=== PATIENT | male | born 1965 | race African-American/Black ===

== ENCOUNTER 2017-07-22 12:09 | Inpatient (IN) | payer OTHER ==
[2017-07-22 13:51] VITALS: BMI 26.8
--- NOTE | 2017-07-22 16:48 | HP ---
CIWA Score - CIWA Score Nausea/Vomitin-Mild Nausea/No Vomiting Muscle Tremors: 3 Anxiety: 4-Mod. Anxious/Guarded Agitation: 4-Moderately Restless Paroxysmal Sweats: 1-Minimal Palms Moist Orientation: 0-Oriented Tacttile Disturbances: 0-None Auditory Disturbances: 0-None Visual Disturbances: 0-None Headache: 0-None Present CIWA-Ar Total Score: 13 Admission ROS [facility] - HPI Chief Complaint: withdrawal sx Allergies/Adverse Reactions: Allergies Allergy/AdvReac Type Severity Reaction Status Date / Time No Known Allergies Allergy Verified 07/22/17 16:39 History of Present Illness: 52 years old male with long history of alcohol nicotine dependence denies medical issue denies mental illness is admitted to detox Exam Limitations: No Limitations - Ebola screening Have you traveled outside of the country in the last 21 days: No Have you had contact with anyone from an Ebola affected area: No Have you been sick,other than usual withdrawal symptoms: No Do you have a fever: No - Review of Systems Constitutional: Changes in sleep, Weight Stable EENT: reports: No Symptoms Reported Respiratory: reports: No Symptoms reported Cardiac: reports: No Symptoms Reported GI: reports: Nausea, Poor Fluid Intake, Abdominal cramping : reports: No Symptoms Reported Musculoskeletal: reports: No Symptoms Reported Integumentary: reports: No Symptoms Reported Neuro: reports: Tremors Endocrine: reports: No Symptoms Reported Hematology: reports: No Symptoms Reported Psychiatric: reports: No Sypmtoms Reported, Judgement Intact, Mood/Affect Appropiate, Orientated x3 Other Systems: Reviewed and Negative Patient History - Patient Medical History Hx Anemia: No Hx Asthma: No Hx Chronic Obstructive Pulmonary Disease (COPD): No Hx Cancer: No Hx Cardiac Disorders: No Hx Congestive Heart Failure: No Hx Hypertension: No Hx Hypercholesterolemia: No Hx Pacemaker: No HX Cerebrovascular Accident: No Hx Seizures: No Hx Dementia: No Hx Diabetes: No Hx Gastrointestinal Disorders: No Hx Liver Disease: No Hx Genitourinary Disorders: No Hx Sexually Transmitted Disorders: No Hx Renal Disease (ESRD): No Hx Thyroid Disease: No Hx Human Immunodeficiency Virus (HIV): No Hx Hepatitis C: No Hx Depression: No Hx Suicide Attempt: No Hx Bipolar Disorder: No Hx Schizophrenia: No - Patient Surgical History Past Surgical History: Yes Hx Orthopedic Surgery: Yes (left jaw elbow 2006) Anesthesia Reaction: No - PPD History Previous Implant?: Yes Documented Results: Negative w/o proof Implanted On Prior [facility] Admission?: No PPD to be Administered?: Yes - Smoking Cessation Smoking history: Current every day smoker Have you smoked in the past 12 months: Yes Aproximately how many cigarettes per day: 2 Cigars Per Day: 0 Hx Chewing Tobacco Use: No Initiated information on smoking cessation: Yes 'Breaking Loose' booklet given: 07/22/17 - Substance & Tx. History Hx Alcohol Use: Yes Hx Substance Use: Yes Substance Use Type: Alcohol, Marijuana Hx Substance Use Treatment: No Family Disease History - Family Disease History Family Disease History: Diabetes: Mother Admission Physical Exam [facility] - Vital Signs Vital Signs: Vital Signs - 24 hr 07/22/17 13:49 Temperature 97.7 F Pulse Rate 65 Respiratory 20 Rate Blood Pressure 135/74 - Physical General Appearance: Yes: Appropriately Dressed, Mild Distress, Tremorous, Irritable, Sweating, Anxious HEENTM: Yes: Hearing grossly Normal, Normal ENT Inspection, Normocephalic, Normal Voice Respiratory: Yes: Chest Non-Tender, Lungs Clear, Normal Breath Sounds, No Respiratory Distress, No Accessory Muscle Use Neck: Yes: Supple, Trachea in good position Breast: Yes: Breasts Symetrical Cardiology: Yes: Regular Rhythm, S1, S2, Bradycardia Abdominal: Yes: Normal Bowel Sounds, Non Tender, Soft Genitourinary: Yes: Within Normal Limits Back: Yes: Normal Inspection Musculoskeletal: Yes: full range of Motion, Gait Steady Extremities: Yes: Normal Inspection, Normal Range of Motion, Non-Tender, Tremors Neurological: Yes: Fully Oriented, Alert, Motor Strength 5/5, Normal Mood/Affect , Normal Response Integumentary: Yes: Warm Lymphatic: Yes: Within Normal Limits - Diagnostic (1) Alcohol dependence with uncomplicated withdrawal Current Visit: Yes Status: Acute (2) Nicotine dependence Current Visit: Yes Status: Acute Qualifiers: Nicotine product type: cigarettes Substance use status: in withdrawal Qualified Code(s): F17.213 - Nicotine dependence, cigarettes, with withdrawal Cleared for Admission [facility] - Detox or Rehab [facility] Level of Care: Medically Managed Detox Regimen/Protocol: Librium [facility] Breath Alcohol Content Breath Alcohol Content: 0 Urine Drug Screen - Results Drug Screen Negative: No Urine Drug Screen Results: THC-Marijuana
[2017-07-22] MEDS ORDERED: MAGNESIUM CITRATE 300 ML BOTTLE PO PRN (16:49)
[2017-07-22] MEDS ORDERED: NICOTINE POLACRILEX 2 MG GUM BC PRN (16:49)
[2017-07-22] MEDS ORDERED: MAGNESIUM HYDROX 2400MG/30ML ORAL SUSPENSION 30 ML CUP PO PRN (16:49)
[2017-07-22] MEDS ORDERED: chlordiazePOXIDE HCL 25 MG CAPSULE PO PRN (16:49)
[2017-07-22] MEDS ORDERED: diphenhydrAMINE HCL 50 MG CAPSULE PO PRN (16:49)
[2017-07-22] MEDS ORDERED: MENTHOL/PHENOL 1 EACH UD MM PRN (16:49)
[2017-07-22] MEDS ORDERED: ACETAMINOPHEN 325 MG TABLET (FP) PO PRN (16:49)
[2017-07-22] MEDS ORDERED: P-EPHED 60MG/TRIPROLIDI 2.5MG TABLET PO PRN (16:49)
[2017-07-22] MEDS ORDERED: guaiFENesin/D-METHORPHAN HB 10 ML UNIT-DOSE CUPS PO PRN (16:49)
[2017-07-22] MEDS ORDERED: LOPERAMIDE HCL 2 MG CAPSULE PO PRN (16:49)
[2017-07-22] MEDS ORDERED: MAG HYDROX/AL HYDROX/SIMETH 30 ML UNIT-DOSE CUP PO PRN (16:49)
[2017-07-22] MEDS ORDERED: hydrOXYzine PAMOATE 50 MG CAPSULE (FP) PO PRN (16:49)
[2017-07-22] MEDS ORDERED: IBUPROFEN 400 MG TABLET (FP) PO PRN (16:49)
[2017-07-22 21:20] LABS: URINE APPEARANCE CLEAR; URINE BILIRUBIN NEGATIVE (NEGATIVE); URINE BLOOD NEGATIVE (NEGATIVE); URINE COLOR YELLOW; URINE GLUCOSE (UA) NEGATIVE (NEGATIVE); URINE KETONE NEGATIVE (NEGATIVE); URINE LEUK ESTERASE NEGATIVE (NEGATIVE); URINE NITRITE NEGATIVE (NEGATIVE); URINE PROTEIN NEGATIVE (NEGATIVE); URINE UROBILINOGEN NEGATIVE mg/dL (0.2-1.0)
[2017-07-22] MEDS: THIAMINE HCL 100 MG TABLET (FP) PO SCH (22:10)
[2017-07-22] MEDS: chlordiazePOXIDE HCL 25 MG CAPSULE PO SCH (22:10)
[2017-07-23] MEDS: chlordiazePOXIDE HCL 25 MG CAPSULE PO SCH (06:18)
[2017-07-23] MEDS ORDERED: diazePAM 5 MG TABLET PO PRN (08:28)
[2017-07-23] MEDS ORDERED: diazePAM 5 MG TABLET PO ONE (08:41)
[2017-07-23] MEDS: PRENATAL VITAMINS W/ FOLIC ACID TABLET (FP) PO SCH (10:15)
[2017-07-23 10:17] LABS: MCH 28.9 pg (25.7-33.7); MCHC 32.4 g/dl (32.0-35.9); MEAN CELL VOLUME 89.1 fl (80-96); MEAN PLT VOLUME 7.7 fl (7.5-11.1); PLATELET COUNT 244 K/MM3 (134-434); RDW 14.1 % (11.9-15.9); WHITE BLOOD COUNT 5.9 K/mm3 (4.0-10.0)
[2017-07-23 10:53] LABS: ALBUMIN 3.5 g/dl (3.4-5.0); ALK PHOS 44 U/L (45-117); ANION GAP 5 (8-16); BILIRUBIN,TOTAL 0.3 mg/dL (0.2-1.0); CALCIUM 9.1 mg/dL (8.5-10.1); CO2 27 mmol/L (21-32); CREATININE 0.9 mg/dL (0.7-1.3); GLUCOSE,RANDOM 100 mg/dL (74-106); SGOT/AST 16 U/L (15-37); SGPT/ALT 26 U/L (12-78); TOT PROT 7.3 g/dl (6.4-8.2)
[2017-07-23] MEDS: NICOTINE 14 MG/24 HOURS TOPICAL PATCH TD SCH (11:30)
[2017-07-23] MEDS: diazePAM 5 MG TABLET PO SCH ×2 (11:32→22:27)
--- NOTE | 2017-07-23 12:53 | PN ---
[facility] CIWA - CIWA Score Nausea/Vomitin-No Nausea/No Vomiting Muscle Tremors: 4-Moderate,w/Arms Extend Anxiety: 4-Mod. Anxious/Guarded Agitation: 4-Moderately Restless Paroxysmal Sweats: 1-Minimal Palms Moist Orientation: 0-Oriented Tacttile Disturbances: 3-Moderate Itch/Numb/Burn Auditory Disturbances: 0-None Visual Disturbances: 0-None Headache: 0-None Present CIWA-Ar Total Score: 16 S Progress Note (SOAP) Subjective: ANXIETY, SWEATS, FATIGUE. C/O "LIBRIUM TOO STRONG FOR ME". ALSO C/O 'DIARRHEA/ STOMACH UPSET". Objective: 07/23/17 12:53 Vital Signs Temperature 96.2 F L 07/23/17 09:44 Pulse Rate 72 07/23/17 09:44 Respiratory Rate 18 07/23/17 09:44 Blood Pressure 152/89 07/23/17 09:44 O2 Sat by Pulse Oximetry (%) Laboratory Last Values WBC 5.9 K/mm3 (4.0-10.0) 07/23/17 07:30 RBC 4.49 M/mm3 (4.00-5.60) 07/23/17 07:30 Hgb 13.0 GM/dL (11.7-16.9) 07/23/17 07:30 Hct 40.0 % (35.4-49) 07/23/17 07:30 MCV 89.1 fl (80-96) 07/23/17 07:30 MCH 28.9 pg (25.7-33.7) 07/23/17 07:30 MCHC 32.4 g/dl (32.0-35.9) 07/23/17 07:30 RDW 14.1 % (11.9-15.9) 07/23/17 07:30 Plt Count 244 K/MM3 (134-434) 07/23/17 07:30 MPV 7.7 fl (7.5-11.1) 07/23/17 07:30 Sodium 139 mmol/L (136-145) 07/23/17 07:30 Potassium 4.3 mmol/L (3.5-5.1) 07/23/17 07:30 Chloride 107 mmol/L (98-107) 07/23/17 07:30 Carbon Dioxide 27 mmol/L (21-32) 07/23/17 07:30 Anion Gap 5 (8-16) L 07/23/17 07:30 BUN 15 mg/dL (7-18) 07/23/17 07:30 Creatinine 0.9 mg/dL (0.7-1.3) 07/23/17 07:30 Creat Clearance w eGFR > 60 (>60) 07/23/17 07:30 Random Glucose 100 mg/dL (74-106) 07/23/17 07:30 Calcium 9.1 mg/dL (8.5-10.1) 07/23/17 07:30 Total Bilirubin 0.3 mg/dL (0.2-1.0) 07/23/17 07:30 AST 16 U/L (15-37) 07/23/17 07:30 ALT 26 U/L (12-78) 07/23/17 07:30 Alkaline Phosphatase 44 U/L (45-117) L 07/23/17 07:30 Total Protein 7.3 g/dl (6.4-8.2) 07/23/17 07:30 Albumin 3.5 g/dl (3.4-5.0) 07/23/17 07:30 Urine Color Yellow 07/22/17 20:50 Urine Appearance Clear 07/22/17 20:50 Urine pH 7.0 (5.0-8.0) 07/22/17 20:50 Ur Specific [place] 1.020 (1.005-1.025) 07/22/17 20:50 Urine Protein Negative (NEGATIVE) 07/22/17 20:50 Urine Glucose (UA) Negative (NEGATIVE) 07/22/17 20:50 Urine Ketones Negative (NEGATIVE) 07/22/17 20:50 Urine Blood Negative (NEGATIVE) 07/22/17 20:50 Urine Nitrite Negative (NEGATIVE) 07/22/17 20:50 Urine Bilirubin Negative (NEGATIVE) 07/22/17 20:50 Urine Urobilinogen Negative mg/dL (0.2-1.0) 07/22/17 20:50 RPR Titer Nonreactive (NONREACTIVE) 07/23/17 07:30 Assessment: 07/23/17 12:53 WITHDRAWAL SX Plan: CONTINUE DETOX D/C LIBRIUM PROTOCOL START VALIUM PROTOCOL
--- NOTE | 2017-07-23 16:01 | EKG ---
Test Reason : Blood Pressure : / mmHG Vent. Rate : 063 BPM Atrial Rate : 063 BPM P-R Int : 182 ms QRS Dur : 086 ms QT Int : 420 ms P-R-T Axes : 057 059 051 degrees QTc Int : 429 ms NORMAL SINUS RHYTHM VOLTAGE CRITERIA FOR LEFT VENTRICULAR HYPERTROPHY ABNORMAL ECG NO PREVIOUS ECGS AVAILABLE Confirmed by CORBY KINCAID MD ([id number]) on 07/23/2017 4:01:06 PM Referred By: Confirmed By:CORBY KINCAID MD
[2017-07-23] MEDS: THIAMINE HCL 100 MG TABLET (FP) PO SCH (22:28)
[2017-07-23] MEDS ORDERED: chlordiazePOXIDE HCL 25 MG CAPSULE PO SCH (23:00)
[2017-07-24] MEDS: NICOTINE 14 MG/24 HOURS TOPICAL PATCH TD SCH (10:20)
[2017-07-24] MEDS: PRENATAL VITAMINS W/ FOLIC ACID TABLET (FP) PO SCH (10:20)
[2017-07-24] MEDS: diazePAM 5 MG TABLET PO SCH ×2 (10:20→22:09)
--- NOTE | 2017-07-24 12:02 | PN ---
S CIWA - CIWA Score Nausea/Vomitin-No Nausea/No Vomiting Muscle Tremors: 3 Anxiety: 5 Agitation: 3 Paroxysmal Sweats: 3 Orientation: 0-Oriented Tacttile Disturbances: 2-Mild Itch/Numbness/Burn Auditory Disturbances: 2-Mild Harshness/Frighten Visual Disturbances: 0-None Headache: 0-None Present CIWA-Ar Total Score: 18 BHS Progress Note (SOAP) Subjective: Tremors, Anxious, Sweating. Objective: PT. A & O X 3, OBSERVED AMBULATING ON UNIT. NO ACUTE DISTRESS. PT. DENIES CHEST PAIN. 07/24/17 12:03 Vital Signs Temperature 97 F L 07/24/17 06:14 Pulse Rate 68 07/24/17 06:14 Respiratory Rate 18 07/24/17 06:14 Blood Pressure 133/95 07/24/17 06:14 O2 Sat by Pulse Oximetry (%) Laboratory Tests 07/22/17 07/23/17 07/23/17 20:50 07:30 07:30 WBC 5.9 RBC 4.49 Hgb 13.0 Hct 40.0 MCV 89.1 MCH 28.9 MCHC 32.4 RDW 14.1 Plt Count 244 MPV 7.7 Sodium 139 Potassium 4.3 Chloride 107 Carbon Dioxide 27 Anion Gap 5 L BUN 15 Creatinine 0.9 Creat Clearance w eGFR > 60 Random Glucose 100 Calcium 9.1 Total Bilirubin 0.3 AST 16 ALT 26 Alkaline Phosphatase 44 L Total Protein 7.3 Albumin 3.5 Urine Color Yellow Urine Appearance Clear Urine pH 7.0 Ur Specific [place] 1.020 Urine Protein Negative Urine Glucose (UA) Negative Urine Ketones Negative Urine Blood Negative Urine Nitrite Negative Urine Bilirubin Negative Urine Urobilinogen Negative RPR Titer 07/23/17 07:30 WBC RBC Hgb Hct MCV MCH MCHC RDW Plt Count MPV Sodium Potassium Chloride Carbon Dioxide Anion Gap BUN Creatinine Creat Clearance w eGFR Random Glucose Calcium Total Bilirubin AST ALT Alkaline Phosphatase Total Protein Albumin Urine Color Urine Appearance Urine pH Ur Specific [place] Urine Protein Urine Glucose (UA) Urine Ketones Urine Blood Urine Nitrite Urine Bilirubin Urine Urobilinogen RPR Titer Nonreactive LABS NOTED. Assessment: 07/24/17 12:03 WITHDRAWAL SYMPTOMS. Plan: CONTINUE DETOX.
[2017-07-24] MEDS: THIAMINE HCL 100 MG TABLET (FP) PO SCH (22:10)
[2017-07-24] MEDS ORDERED: chlordiazePOXIDE 5 MG CAPSULE PO SCH (23:00)
[2017-07-25 06:47] VITALS: BP 140/90; PULSE 71; TEMP 96.2
[2017-07-25] MEDS ORDERED: diazePAM 5 MG TABLET PO SCH (10:00)
--- NOTE | 2017-07-25 17:54 | DS ---
[facility] Detox Discharge Summary Admission Date: 07/22/17 Discharge Date: 07/25/17 - History Present History: Alcohol Dependence Additional Comments: PATIENT ELECTING TO GO HOME. PATIENT ADVISED TO CONSIDER LOCAL 12-STEP / AA / NA OUTPATIENT SUPPORT GROUPS FOR AFTERCARE. PATIENT WAS DISCHARGED FROM DETOX UNIT IN STABLE MEDICAL CONDITION. Pertinent Past History: Nicotine dependence. - Physical Exam Results Vital Signs: Vital Signs Temperature 96.2 F L 07/25/17 06:47 Pulse Rate 71 07/25/17 06:47 Respiratory Rate 18 07/25/17 06:47 Blood Pressure 140/90 07/25/17 06:47 O2 Sat by Pulse Oximetry (%) Pertinent Admission Physical Exam Findings: WITHDRAWAL SYMPTOMS. Laboratory Tests 07/22/17 07/23/17 07/23/17 20:50 07:30 07:30 WBC 5.9 RBC 4.49 Hgb 13.0 Hct 40.0 MCV 89.1 MCH 28.9 MCHC 32.4 RDW 14.1 Plt Count 244 MPV 7.7 Sodium 139 Potassium 4.3 Chloride 107 Carbon Dioxide 27 Anion Gap 5 L BUN 15 Creatinine 0.9 Creat Clearance w eGFR > 60 Random Glucose 100 Calcium 9.1 Total Bilirubin 0.3 AST 16 ALT 26 Alkaline Phosphatase 44 L Total Protein 7.3 Albumin 3.5 Urine Color Yellow Urine Appearance Clear Urine pH 7.0 Ur Specific [place] 1.020 Urine Protein Negative Urine Glucose (UA) Negative Urine Ketones Negative Urine Blood Negative Urine Nitrite Negative Urine Bilirubin Negative Urine Urobilinogen Negative RPR Titer 07/23/17 07:30 WBC RBC Hgb Hct MCV MCH MCHC RDW Plt Count MPV Sodium Potassium Chloride Carbon Dioxide Anion Gap BUN Creatinine Creat Clearance w eGFR Random Glucose Calcium Total Bilirubin AST ALT Alkaline Phosphatase Total Protein Albumin Urine Color Urine Appearance Urine pH Ur Specific [place] Urine Protein Urine Glucose (UA) Urine Ketones Urine Blood Urine Nitrite Urine Bilirubin Urine Urobilinogen RPR Titer Nonreactive LABS NOTED. - Treatment Hospital Course: Detox Protocol Followed, Detoxed Safely, Responded well, Discharged Condition Good Patient has Accepted a Rehab Referral to: NO. PT ADVISED TO CONSIDER LOCAL 12- STEP/NA/AA SUPPORT GROUPS FOR AFTERCARE - Medication Discharge Medications: Ambulatory Orders NK [No Known Home Medication] 07/22/17 - Diagnosis (1) Alcohol dependence with uncomplicated withdrawal Status: Acute (2) Nicotine dependence Status: Chronic Qualifiers: Nicotine product type: cigarettes Substance use status: in withdrawal Qualified Code(s): F17.213 - Nicotine dependence, cigarettes, with withdrawal - AMA Did Patient Leave Against Medical Advice: No
[2017-07-25] MEDS ORDERED: chlordiazePOXIDE HCL 10 MG CAPSULE PO SCH (23:00)
== END 2017-07-25 09:07 | disposition home or self-care (01) | DRG 775 ==
LOC: YASAS 12:09 → Y3N 17:44
PROVIDERS: ADMIT Internal Medicine; ATTEND Internal Medicine
PROC: HZ2ZZZZ Detoxification Services for Substance Abuse Treatment (ICD-10-PCS; principal; 2017-07-22)
DX: F10.230 Alcohol dependence with withdrawal, uncomplicated (principal); F17.213 Nicotine dependence, cigarettes, with withdrawal
CPT/HCPCS: 36415; 80053; 81003; 85027; 86593; 93005; 93010

== ENCOUNTER 2018-12-21 12:14 | Inpatient (IN) | payer OTHER ==
[2018-12-21 12:43] VITALS: BMI 27.1
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
[2018-12-21] MEDS ORDERED: P-EPHED 60MG/TRIPROLIDI 2.5MG TABLET PO PRN (13:57)
[2018-12-21] MEDS ORDERED: MAGNESIUM HYDROX 2400MG/30ML ORAL SUSPENSION 30 ML CUP PO PRN (13:57)
[2018-12-21] MEDS ORDERED: IBUPROFEN 400 MG TABLET (FP) PO PRN (13:57)
[2018-12-21] MEDS ORDERED: MAG HYDROX/AL HYDROX/SIMETH 30 ML UNIT-DOSE CUP PO PRN (13:57)
[2018-12-21] MEDS ORDERED: chlordiazePOXIDE HCL 25 MG CAPSULE PO PRN (13:57)
[2018-12-21] MEDS ORDERED: LOPERAMIDE HCL 2 MG CAPSULE PO PRN (13:57)
[2018-12-21] MEDS ORDERED: MAGNESIUM CITRATE 300 ML BOTTLE PO PRN (13:57)
[2018-12-21] MEDS ORDERED: ACETAMINOPHEN 325 MG TABLET (FP) PO PRN (13:57)
[2018-12-21] MEDS ORDERED: MENTHOL/PHENOL 1 EACH UD MM PRN (13:57)
[2018-12-21] MEDS ORDERED: hydrOXYzine PAMOATE 25 MG CAPSULE (FP) PO PRN (13:57)
[2018-12-21] MEDS ORDERED: guaiFENesin/D-METHORPHAN HB 10 ML UNIT-DOSE CUPS PO PRN (13:57)
--- NOTE | 2018-12-21 15:57 | PN ---
B[facility] Progress Note Note: patient has elevated bp denies blurred vision denies headache no shortness of breath begin metoprolol 50 mg bid along with librium regimen continue monitoring bp
[2018-12-21] MEDS ORDERED: MELATONIN 5 MG TABLETS PO PRN (22:00)
[2018-12-21] MEDS ORDERED: METOPROLOL TARTRATE 50 MG TABLET (FP) PO SCH (22:00)
[2018-12-21] MEDS: METOPROLOL TARTRATE 50 MG TABLET (FP) PO SCH (22:08)
[2018-12-21] MEDS: chlordiazePOXIDE HCL 25 MG CAPSULE PO SCH (22:08)
[2018-12-21] MEDS: THIAMINE HCL 100 MG TABLET (FP) PO SCH (22:11)
[2018-12-22] MEDS: chlordiazePOXIDE HCL 25 MG CAPSULE PO SCH ×4 (06:11→22:45)
--- NOTE | 2018-12-22 08:24 | PN ---
S CIWA - CIWA Score Nausea/Vomitin-Mild Nausea/No Vomiting Muscle Tremors: 3 Anxiety: 3 Agitation: 3 Paroxysmal Sweats: 1-Minimal Palms Moist Orientation: 0-Oriented Tacttile Disturbances: 0-None Auditory Disturbances: 0-None Visual Disturbances: 0-None Headache: 0-None Present CIWA-Ar Total Score: 11 BHS Progress Note (SOAP) Subjective: patient prefers regular diet benefits of low salt diet regimen related to hypertension were informed tremor sweating trouble sleep at night anxiety Objective: 12/22/18 08:26 Vital Signs Temperature 97.2 F L 12/22/18 06:38 Pulse Rate 68 12/22/18 06:38 Respiratory Rate 18 12/22/18 06:38 Blood Pressure 130/80 12/22/18 06:38 O2 Sat by Pulse Oximetry (%) lab pending Assessment: 12/22/18 08:26 alcohol withdrawal sx Plan: continue alcohol detox discuss alcohol related hypertension and risks of uncontrolled hypertension
[2018-12-22] MEDS: PRENATAL VITAMINS W/ FOLIC ACID TABLET (FP) PO SCH (10:02)
[2018-12-22] MEDS: METOPROLOL TARTRATE 50 MG TABLET (FP) PO SCH ×2 (10:02→22:46)
[2018-12-22 11:03] LABS: ALBUMIN 3.6 g/dl (3.4-5.0); ALK PHOS 51 U/L (45-117); ANION GAP 5 MMOL/L (8-16); BILIRUBIN,TOTAL 0.4 mg/dL (0.2-1); BLOOD UREA NITROGEN 9 mg/dL (7-18); CALCIUM 8.5 mg/dL (8.5-10.1); CHLORIDE 103 mmol/L (98-107); CO2 27 mmol/L (21-32); GLUCOSE,RANDOM 111 mg/dL (74-106); POTASSIUM 3.9 mmol/L (3.5-5.1); SGOT/AST 12 U/L (15-37); SGPT/ALT 27 U/L (13-61); SODIUM 136 mmol/L (136-145); TOT PROT 9.4 g/dl (6.4-8.2)
[2018-12-22 11:11] LABS: RDW 14.2 % (11.9-15.9); WHITE BLOOD COUNT 4.1 K/mm3 (4.0-10.0)
[2018-12-22 11:14] LABS: HEMATOCRIT 37.2 % (35.4-49); HEMOGLOBIN 12.7 GM/dL (11.7-16.9); MCH 30.2 pg (25.7-33.7); MCHC 34.1 g/dl (32.0-35.9); MEAN CELL VOLUME 88.5 fl (80-96); MEAN PLT VOLUME 7.6 fl (7.5-11.1); PLATELET COUNT 253 K/MM3 (134-434)
[2018-12-22 14:22] LABS: URINE APPEARANCE CLEAR; URINE BILIRUBIN NEGATIVE (<2.0 mg/dL); URINE COLOR STRAW; URINE GLUCOSE (UA) NEGATIVE (NEGATIVE); URINE KETONE NEGATIVE (NEGATIVE); URINE LEUK ESTERASE NEGATIVE (NEGATIVE); URINE NITRITE NEGATIVE (NEGATIVE); URINE PROTEIN NEGATIVE (NEGATIVE); URINE UROBILINOGEN NEGATIVE mg/dL (0.2-1.0)
[2018-12-22 14:35] LABS: EPI CELLS RARE /HPF (FEW)
[2018-12-22] MEDS ORDERED: cloNIDine HCL 0.1 MG TABLET PO PRN (16:02)
[2018-12-22] MEDS: THIAMINE HCL 100 MG TABLET (FP) PO SCH (22:45)
[2018-12-23] MEDS: chlordiazePOXIDE HCL 25 MG CAPSULE PO SCH ×3 (06:06→17:41)
[2018-12-23] MEDS: METOPROLOL TARTRATE 50 MG TABLET (FP) PO SCH ×2 (10:08→22:36)
[2018-12-23] MEDS: PRENATAL VITAMINS W/ FOLIC ACID TABLET (FP) PO SCH (10:08)
--- NOTE | 2018-12-23 14:11 | PN ---
[facility] CIWA - CIWA Score Nausea/Vomitin-No Nausea/No Vomiting Muscle Tremors: 3 Anxiety: 1-Mildly Anxious Agitation: 2 Paroxysmal Sweats: 1-Minimal Palms Moist Orientation: 1-Uncertain about Date Tacttile Disturbances: 0-None Auditory Disturbances: 0-None Visual Disturbances: 0-None Headache: 1-Very Mild CIWA-Ar Total Score: 9 S Progress Note (SOAP) Subjective: tremor sweating restlessness low energy Objective: 12/23/18 14:18 Vital Signs Temperature 97.3 F L 12/23/18 13:37 Pulse Rate 60 12/23/18 13:37 Respiratory Rate 18 12/23/18 13:37 Blood Pressure 134/86 12/23/18 13:37 O2 Sat by Pulse Oximetry (%) Laboratory Last Values WBC 4.1 K/mm3 (4.0-10.0) 12/22/18 08:00 RBC 4.20 M/mm3 (4.00-5.60) 12/22/18 08:00 Hgb 12.7 GM/dL (11.7-16.9) 12/22/18 08:00 Hct 37.2 % (35.4-49) 12/22/18 08:00 MCV 88.5 fl (80-96) 12/22/18 08:00 MCH 30.2 pg (25.7-33.7) 12/22/18 08:00 MCHC 34.1 g/dl (32.0-35.9) 12/22/18 08:00 RDW 14.2 % (11.9-15.9) 12/22/18 08:00 Plt Count 253 K/MM3 (134-434) 12/22/18 08:00 MPV 7.6 fl (7.5-11.1) 12/22/18 08:00 Sodium 136 mmol/L (136-145) 12/22/18 08:00 Potassium 3.9 mmol/L (3.5-5.1) 12/22/18 08:00 Chloride 103 mmol/L (98-107) 12/22/18 08:00 Carbon Dioxide 27 mmol/L (21-32) 12/22/18 08:00 Anion Gap 5 MMOL/L (8-16) L 12/22/18 08:00 BUN 9 mg/dL (7-18) 12/22/18 08:00 Creatinine 1.0 mg/dL (0.55-1.3) 12/22/18 08:00 Creat Clearance w eGFR > 60 (>60) 12/22/18 08:00 Random Glucose 111 mg/dL (74-106) H 12/22/18 08:00 Calcium 8.5 mg/dL (8.5-10.1) 12/22/18 08:00 Total Bilirubin 0.4 mg/dL (0.2-1) 12/22/18 08:00 AST 12 U/L (15-37) L 12/22/18 08:00 ALT 27 U/L (13-61) 12/22/18 08:00 Alkaline Phosphatase 51 U/L (45-117) 12/22/18 08:00 Total Protein 9.4 g/dl (6.4-8.2) H 12/22/18 08:00 Albumin 3.6 g/dl (3.4-5.0) 12/22/18 08:00 Urine Color Straw 12/22/18 10:30 Urine Appearance Clear 12/22/18 10:30 Urine pH 6.0 (5.0-8.0) 12/22/18 10:30 Ur Specific [place] 1.010 (1.010-1.035) 12/22/18 10:30 Urine Protein Negative (NEGATIVE) 12/22/18 10:30 Urine Glucose (UA) Negative (NEGATIVE) 12/22/18 10:30 Urine Ketones Negative (NEGATIVE) 12/22/18 10:30 Urine Blood 1+ (NEGATIVE) H 12/22/18 10:30 Urine Nitrite Negative (NEGATIVE) 12/22/18 10:30 Urine Bilirubin Negative (<2.0 mg/dL) 12/22/18 10:30 Urine Urobilinogen Negative mg/dL (0.2-1.0) 12/22/18 10:30 Ur Leukocyte Esterase Negative (NEGATIVE) 12/22/18 10:30 Urine WBC (Auto) <1 /hpf (3-5) 12/22/18 10:30 Urine RBC (Auto) 1 /hpf (0-3) 12/22/18 10:30 Ur Epithelial Cells Rare /HPF (FEW) 12/22/18 10:30 RPR Titer Nonreactive (NONREACTIVE) 12/22/18 08:00 HIV 1&2 Antibody Screen Negative 12/22/18 08:00 HIV P24 Antigen Negative 12/22/18 08:00 lab noted Assessment: 12/23/18 14:18 withdrawal sx Plan: continue detox
[2018-12-23] MEDS: THIAMINE HCL 100 MG TABLET (FP) PO SCH (22:35)
[2018-12-23] MEDS: chlordiazePOXIDE 5 MG CAPSULE PO SCH (22:35)
[2018-12-24] MEDS: chlordiazePOXIDE 5 MG CAPSULE PO SCH ×2 (06:04→12:00)
[2018-12-24 09:38] VITALS: BP 148/89; PULSE 81; TEMP 96.6
[2018-12-24] MEDS: PRENATAL VITAMINS W/ FOLIC ACID TABLET (FP) PO SCH (10:33)
[2018-12-24] MEDS: METOPROLOL TARTRATE 50 MG TABLET (FP) PO SCH (10:33)
--- NOTE | 2018-12-24 19:26 | PN ---
[facility] Progress Note (SOAP) Subjective: Patient denies current Withdrawal / Detox symptoms and reports that he feels well overall. Objective: PATIENT A & O X 3, OBSERVED AMBULATING ON UNIT. IN NO ACUTE DISTRESS. 12/24/18 19:24 Vital Signs Temperature 96.6 F L 12/24/18 09:37 Pulse Rate 81 12/24/18 09:37 Respiratory Rate 20 12/24/18 09:37 Blood Pressure 148/89 12/24/18 09:37 O2 Sat by Pulse Oximetry (%) Laboratory Tests 12/22/18 12/22/18 12/22/18 08:00 08:00 08:00 WBC 4.1 RBC 4.20 Hgb 12.7 Hct 37.2 MCV 88.5 MCH 30.2 MCHC 34.1 RDW 14.2 Plt Count 253 MPV 7.6 Sodium 136 Potassium 3.9 Chloride 103 Carbon Dioxide 27 Anion Gap 5 L BUN 9 Creatinine 1.0 Creat Clearance w eGFR > 60 Random Glucose 111 H Calcium 8.5 Total Bilirubin 0.4 AST 12 L ALT 27 Alkaline Phosphatase 51 Total Protein 9.4 H Albumin 3.6 Urine Color Urine Appearance Urine pH Ur Specific [place] Urine Protein Urine Glucose (UA) Urine Ketones Urine Blood Urine Nitrite Urine Bilirubin Urine Urobilinogen Ur Leukocyte Esterase Urine WBC (Auto) Urine RBC (Auto) Ur Epithelial Cells RPR Titer Nonreactive HIV 1&2 Antibody Screen HIV P24 Antigen 12/22/18 12/22/18 08:00 10:30 WBC RBC Hgb Hct MCV MCH MCHC RDW Plt Count MPV Sodium Potassium Chloride Carbon Dioxide Anion Gap BUN Creatinine Creat Clearance w eGFR Random Glucose Calcium Total Bilirubin AST ALT Alkaline Phosphatase Total Protein Albumin Urine Color Straw Urine Appearance Clear Urine pH 6.0 Ur Specific [place] 1.010 Urine Protein Negative Urine Glucose (UA) Negative Urine Ketones Negative Urine Blood 1+ H Urine Nitrite Negative Urine Bilirubin Negative Urine Urobilinogen Negative Ur Leukocyte Esterase Negative Urine WBC (Auto) <1 Urine RBC (Auto) 1 Ur Epithelial Cells Rare RPR Titer HIV 1&2 Antibody Screen Negative HIV P24 Antigen Negative LABS NOTED. Assessment: 12/24/18 19:25 COMPLETION OF DETOX REGIMEN. Plan: PATIENT GRANTED EARLY DISCHARGE FROM DETOX UNIT TODAY SO THAT HE MAY GO ON TO AFTERCARE.
--- NOTE | 2018-12-24 19:27 | DS ---
[facility] Detox Discharge Summary Admission Date: 12/21/18 Discharge Date: 12/24/18 - History Present History: Alcohol Dependence Additional Comments: PATIENT ADVISED TO CONSIDER LOCAL 12-STEP /NA / AA OUTPATIENT SUPPORT GROUP PROGRAMS FOR AFTERCARE. JUST BEFORE TIME OF DISCHARGE FROM DETOX UNIT, PATIENT NOTES THAT HE HAS A HISTORY (CHRONIC) OF INTERMITTENT ABDOMINAL DISCOMFORT ON LEFT SIDE BELOW RIBCAGE, CONCENTRATED IN SMALL AREA. PATIENT ADVISED TO BE TAKEN VIA AMBULANCE TO [facility] FOR FURTHER MEDICAL EVALUATION BEFORE LEAVING DETOX UNIT. HOWEVER, PATIENT DECLINED TO DO SO, NOTING THAT HE HAS APPOINTMENT LATER TODAY WITH HIS LIABILITY CLAIMS ADJUSTER AT [facility] ([place], [place] ) AND THAT HE WILL BE CERTAIN TO ADDRESS THAT ISSUE WITH LIABILITY CLAIMS ADJUSTER LATER ON DURING APPOINTMENT. PATIENT ALSO ADVISED TO CONSULT LIABILITY CLAIMS ADJUSTER FOR ELEVATED BP NOTED WHILE PATIENT WAS ADMITTED ON DETOX UNIT (PATIENT REPORTS HISTORY OF HTN BUT DENIES HISTORY OF PRESCRIPTION OF ANTI-HYPERTENSIVE MEDICATION, NOTING THAT HE HAS CONTROLLED HIS HTN THROUGH DIET THUS FAR). PATIENT VERBALIZED UNDERSTANDING OF ALL RECOMMENDATIONS. PATIENT WAS DISCHARGED FROM DETOX UNIT IN STABLE MEDICAL CONDITION. Pertinent Past History: HTN, Nicotine Dependence, Dehydration, History of Depression. - Physical Exam Results Vital Signs: Vital Signs Temperature 96.6 F L 12/24/18 09:37 Pulse Rate 81 12/24/18 09:37 Respiratory Rate 20 12/24/18 09:37 Blood Pressure 148/89 12/24/18 09:37 O2 Sat by Pulse Oximetry (%) Pertinent Admission Physical Exam Findings: WITHDRAWAL SYMPTOMS. Laboratory Tests 12/22/18 12/22/18 12/22/18 08:00 08:00 08:00 WBC 4.1 RBC 4.20 Hgb 12.7 Hct 37.2 MCV 88.5 MCH 30.2 MCHC 34.1 RDW 14.2 Plt Count 253 MPV 7.6 Sodium 136 Potassium 3.9 Chloride 103 Carbon Dioxide 27 Anion Gap 5 L BUN 9 Creatinine 1.0 Creat Clearance w eGFR > 60 Random Glucose 111 H Calcium 8.5 Total Bilirubin 0.4 AST 12 L ALT 27 Alkaline Phosphatase 51 Total Protein 9.4 H Albumin 3.6 Urine Color Urine Appearance Urine pH Ur Specific [place] Urine Protein Urine Glucose (UA) Urine Ketones Urine Blood Urine Nitrite Urine Bilirubin Urine Urobilinogen Ur Leukocyte Esterase Urine WBC (Auto) Urine RBC (Auto) Ur Epithelial Cells RPR Titer Nonreactive HIV 1&2 Antibody Screen HIV P24 Antigen 12/22/18 12/22/18 08:00 10:30 WBC RBC Hgb Hct MCV MCH MCHC RDW Plt Count MPV Sodium Potassium Chloride Carbon Dioxide Anion Gap BUN Creatinine Creat Clearance w eGFR Random Glucose Calcium Total Bilirubin AST ALT Alkaline Phosphatase Total Protein Albumin Urine Color Straw Urine Appearance Clear Urine pH 6.0 Ur Specific [place] 1.010 Urine Protein Negative Urine Glucose (UA) Negative Urine Ketones Negative Urine Blood 1+ H Urine Nitrite Negative Urine Bilirubin Negative Urine Urobilinogen Negative Ur Leukocyte Esterase Negative Urine WBC (Auto) <1 Urine RBC (Auto) 1 Ur Epithelial Cells Rare RPR Titer HIV 1&2 Antibody Screen Negative HIV P24 Antigen Negative LABS NOTED. - Treatment Hospital Course: Detox Protocol Followed, Detoxed Safely, Responded well, Discharged Condition Good Patient has Accepted a Rehab Referral to: PT. ADVISED TO CONSDIDER LOCAL 12- STEP / NA / AA OUTPATIENT SUPPORT GROUPS. - Diagnosis (1) Alcohol dependence with uncomplicated withdrawal Status: Acute (2) At risk for dehydration due to poor fluid intake Status: Acute (3) Marijuana dependence Status: Acute (4) Hypertension Status: Chronic Qualifiers: Hypertension type: essential hypertension Qualified Code(s): I10 - Essential (primary) hypertension (5) Nicotine dependence Status: Chronic Qualifiers: Nicotine product type: cigarettes Substance use status: in withdrawal Qualified Code(s): F17.213 - Nicotine dependence, cigarettes, with withdrawal - AMA Did Patient Leave Against Medical Advice: No
[2018-12-24] MEDS ORDERED: chlordiazePOXIDE HCL 10 MG CAPSULE PO SCH (23:00)
== END 2018-12-24 10:01 | disposition home or self-care (01) | DRG 775 ==
LOC: YASAS 12:14 → Y3N 15:23
PROVIDERS: ADMIT Surgery; ATTEND Surgery
PROC: HZ2ZZZZ Detoxification Services for Substance Abuse Treatment (ICD-10-PCS; principal; 2018-12-21)
DX: F10.230 Alcohol dependence with withdrawal, uncomplicated (principal); F12.20 Cannabis dependence, uncomplicated; F17.213 Nicotine dependence, cigarettes, with withdrawal; F32.9 Major depressive disorder, single episode, unspecified; I10 Essential (primary) hypertension; M25.561 Pain in right knee; M25.562 Pain in left knee; V89.2XXS Person injured in unspecified motor-vehicle accident, traffic, sequela; Z91.89 Other specified personal risk factors, not elsewhere classified; Z91.5 Personal history of self-harm
CPT/HCPCS: 36415; 80053; 81003; 81015; 85027; 86593; 87389; J0735

== ENCOUNTER 2019-03-21 12:30 | Inpatient (IN) | payer OTHER ==
[2019-03-21 14:12] VITALS: BMI 26.6
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
[2019-03-21] MEDS ORDERED: MELATONIN 5 MG TABLETS PO PRN (17:06)
[2019-03-21] MEDS ORDERED: MAGNESIUM HYDROX 2400MG/30ML ORAL SUSPENSION 30 ML CUP PO PRN (17:06)
[2019-03-21] MEDS ORDERED: METHOCARBAMOL 500 MG TABLET PO PRN (17:06)
[2019-03-21] MEDS ORDERED: MENTHOL/PHENOL 1 EACH UD MM PRN (17:06)
[2019-03-21] MEDS ORDERED: MAG HYDROX/AL HYDROX/SIMETH 30 ML UNIT-DOSE CUP PO PRN (17:06)
[2019-03-21] MEDS ORDERED: BISMUTH SUBSALICYLATE 524 MG/30 ML UD PO PRN (17:06)
[2019-03-21] MEDS ORDERED: hydrOXYzine PAMOATE 25 MG CAPSULE (FP) PO PRN (17:06)
[2019-03-21] MEDS ORDERED: MAGNESIUM CITRATE 300 ML BOTTLE PO PRN (17:06)
[2019-03-21] MEDS ORDERED: IBUPROFEN 400 MG TABLET (FP) PO PRN (17:06)
[2019-03-21] MEDS ORDERED: chlordiazePOXIDE HCL 25 MG CAPSULE PO PRN (17:06)
[2019-03-21] MEDS ORDERED: ACETAMINOPHEN 325 MG TABLET (FP) PO PRN ×2 (17:06)
[2019-03-21] MEDS ORDERED: chlordiazePOXIDE HCL 25 MG CAPSULE PO ONE (17:45)
[2019-03-21] MEDS: chlordiazePOXIDE HCL 25 MG CAPSULE PO SCH (22:03)
[2019-03-21] MEDS: THIAMINE HCL 100 MG TABLET (FP) PO SCH (22:04)
[2019-03-21 23:12] LABS: EPI CELLS 0.2 /HPF (0-5/HPF); HYALINE CASTS 0 /lpf (0-8); URINE APPEARANCE CLEAR; URINE BACTERIA 3.9 /hpf (NEGATIVE); URINE BILIRUBIN NEGATIVE (NEGATIVE); URINE COLOR YELLOW; URINE GLUCOSE (UA) NEGATIVE (NEGATIVE); URINE KETONE NEGATIVE (NEGATIVE); URINE LEUK ESTERASE NEGATIVE (NEGATIVE); URINE NITRITE NEGATIVE (NEGATIVE); URINE PROTEIN NEGATIVE (NEGATIVE); URINE RBC 1 /hpf (0-4); URINE UROBILINOGEN 0.2 mg/dL (0.2-1.0); URINE WBC 1 /hpf (0-5)
[2019-03-22] MEDS: chlordiazePOXIDE HCL 25 MG CAPSULE PO SCH ×4 (06:27→22:10)
--- NOTE | 2019-03-22 10:05 | PN ---
[facility] CIWA - CIWA Score Nausea/Vomitin Muscle Tremors: 2 Anxiety: 2 Agitation: 2 Paroxysmal Sweats: 1-Minimal Palms Moist Orientation: 0-Oriented Tacttile Disturbances: 1-Very Mild Itch/Numbness Auditory Disturbances: 1-Very Mild Visual Disturbances: 0-None Headache: 2-Mild CIWA-Ar Total Score: 13 B[facility] Progress Note (SOAP) Subjective: alert,irritable,anxious,tremor,interrupted sleep Objective: 03/22/19 10:04 Vital Signs Temperature 98.1 F 03/22/19 09:23 Pulse Rate 86 03/22/19 09:23 Respiratory Rate 18 03/22/19 09:23 Blood Pressure 135/79 03/22/19 09:23 O2 Sat by Pulse Oximetry (%) 03/22/19 10:05 labs pending Assessment: 03/22/19 10:05 withdrawal symptom Plan: continue detox
[2019-03-22] MEDS: PRENATAL VITAMINS W/ FOLIC ACID TABLET (FP) PO SCH (11:12)
--- NOTE | 2019-03-22 11:34 | PN ---
[facility] Progress Note Note: pt wants to leave on to go to court. a change of his librium adjusted to have pt continue taking his mediation as ordered and he can be detoxed effectively and be discharged.
[2019-03-22] MEDS: THIAMINE HCL 100 MG TABLET (FP) PO SCH (22:10)
[2019-03-23] MEDS: chlordiazePOXIDE HCL 25 MG CAPSULE PO SCH ×3 (05:43→17:39)
[2019-03-23] MEDS: PRENATAL VITAMINS W/ FOLIC ACID TABLET (FP) PO SCH (10:14)
--- NOTE | 2019-03-23 14:15 | PN ---
[facility] CIWA - CIWA Score Nausea/Vomitin-No Nausea/No Vomiting Muscle Tremors: None Anxiety: 0-No Anxiety, at Ease Agitation: 1-Slight > Activity Paroxysmal Sweats: No Perspiration Orientation: 0-Oriented Tacttile Disturbances: 0-None Auditory Disturbances: 0-None Visual Disturbances: 0-None Headache: 0-None Present CIWA-Ar Total Score: 1 [facility] Progress Note (SOAP) Subjective: Patient denies current Withdrawal / Detox symptoms and reports that he feels well overall at this time. Objective: PATIENT A & O X 3, OBSERVED AMBULATING ON UNIT UNASSISTED. IN NO ACUTE DISTRESS. 03/23/19 14:13 Vital Signs Temperature 97.9 F 03/23/19 10:53 Pulse Rate 82 03/23/19 10:53 Respiratory Rate 20 03/23/19 10:53 Blood Pressure 141/90 03/23/19 10:53 O2 Sat by Pulse Oximetry (%) Laboratory Tests 03/21/19 23:00 Urine Color Yellow Urine Appearance Clear Urine pH 5.0 Ur Specific [place] 1.021 Urine Protein Negative Urine Glucose (UA) Negative Urine Ketones Negative Urine Blood Trace Urine Nitrite Negative Urine Bilirubin Negative Urine Urobilinogen 0.2 Ur Leukocyte Esterase Negative Urine WBC (Auto) 1 Urine RBC (Auto) 1 Urine Casts (Auto) 0 U Epithel Cells (Auto) 0.2 Urine Bacteria (Auto) 3.9 ADMISSION UA RESULTS NOTED. PATIENT REFUSED TO HAVE OTHER ADMISSION LABS DRAWN. Assessment: 03/23/19 14:14 WITHDRAWAL SYMPTOMS. Plan: CONTINUE DETOX. PATIENT SCHEDULED FOR D/C TOMORROW AM.
[2019-03-23] MEDS: THIAMINE HCL 100 MG TABLET (FP) PO SCH (22:28)
[2019-03-23] MEDS: chlordiazePOXIDE HCL 10 MG CAPSULE PO SCH (22:28)
[2019-03-23 22:45] VITALS: BP 128/91; PULSE 84; TEMP 97.7
[2019-03-23] MEDS ORDERED: chlordiazePOXIDE HCL 10 MG CAPSULE PO PRN (23:00)
[2019-03-24] MEDS: chlordiazePOXIDE HCL 10 MG CAPSULE PO SCH (06:17)
--- NOTE | 2019-03-24 09:35 | DS ---
[facility] Detox Discharge Summary Admission Date: 03/21/19 Discharge Date: 03/24/19 - History Present History: Alcohol Dependence, Cannabis Dependence - Physical Exam Results Vital Signs: Vital Signs Temperature 97.7 F 03/23/19 22:44 Pulse Rate 84 03/23/19 22:44 Respiratory Rate 18 03/23/19 22:44 Blood Pressure 128/91 03/23/19 22:44 O2 Sat by Pulse Oximetry (%) - Treatment Hospital Course: Detox Protocol Followed, Detoxed Safely, Responded well, Discharged Condition Good, Rehab Referral Accepted - Medication Discharge Medications: Ambulatory Orders NK [No Known Home Medication] 03/21/19 - Diagnosis (1) Alcohol dependence with uncomplicated withdrawal Status: Chronic (2) Marijuana dependence Status: Chronic (3) Hypertension Status: Chronic Qualifiers: Hypertension type: essential hypertension Qualified Code(s): I10 - Essential (primary) hypertension (4) Nicotine dependence Status: Chronic Qualifiers: Nicotine product type: cigarettes Substance use status: uncomplicated Qualified Code(s): F17.210 - Nicotine dependence, cigarettes, uncomplicated - AMA Did Patient Leave Against Medical Advice: No (pt went home)
[2019-03-24] MEDS ORDERED: chlordiazePOXIDE HCL 10 MG CAPSULE PO SCH (23:00)
== END 2019-03-24 06:45 | disposition home or self-care (01) | DRG 775 ==
LOC: YASAS 12:30 → Y6N 17:14
PROVIDERS: ADMIT Surgery; ATTEND Surgery
PROC: HZ2ZZZZ Detoxification Services for Substance Abuse Treatment (ICD-10-PCS; principal; 2019-03-21)
DX: F10.230 Alcohol dependence with withdrawal, uncomplicated (principal); F12.20 Cannabis dependence, uncomplicated; F17.210 Nicotine dependence, cigarettes, uncomplicated; I10 Essential (primary) hypertension
CPT/HCPCS: 81003

== ENCOUNTER 2019-05-04 11:00 | Inpatient (IN) | payer OTHER ==
[2019-05-04 11:16] VITALS: BMI 26.4
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
[2019-05-04] MEDS ORDERED: MELATONIN 5 MG TABLETS PO PRN (11:52)
[2019-05-04] MEDS ORDERED: IBUPROFEN 400 MG TABLET (FP) PO PRN (11:52)
[2019-05-04] MEDS ORDERED: ACETAMINOPHEN 325 MG TABLET (FP) PO PRN ×2 (11:52)
[2019-05-04] MEDS ORDERED: MAGNESIUM HYDROX 2400MG/30ML ORAL SUSPENSION 30 ML CUP PO PRN (11:52)
[2019-05-04] MEDS ORDERED: BISMUTH SUBSALICYLATE 262 MG/15 ML BTL PO PRN (11:52)
[2019-05-04] MEDS ORDERED: hydrOXYzine PAMOATE 25 MG CAPSULE (FP) PO PRN (11:52)
[2019-05-04] MEDS ORDERED: MAG HYDROX/AL HYDROX/SIMETH 30 ML UNIT-DOSE CUP PO PRN (11:52)
[2019-05-04] MEDS ORDERED: MAGNESIUM CITRATE 300 ML BOTTLE PO PRN (11:52)
[2019-05-04] MEDS ORDERED: chlordiazePOXIDE HCL 25 MG CAPSULE PO PRN (11:52)
[2019-05-04] MEDS ORDERED: METHOCARBAMOL 500 MG TABLET PO PRN (11:52)
[2019-05-04] MEDS ORDERED: MENTHOL/PHENOL 1 EACH UD MM PRN (11:52)
[2019-05-04 14:48] LABS: HEMATOCRIT 37.5 % (35.4-49); HEMOGLOBIN 12.5 GM/dL (11.7-16.9); MCH 29.7 pg (25.7-33.7); MCHC 33.2 g/dl (32.0-35.9); MEAN CELL VOLUME 89.5 fl (80-96); MEAN PLT VOLUME 7.4 fl (7.5-11.1); PLATELET COUNT 251 K/MM3 (134-434); RBC 4.19 M/mm3 (4.00-5.60); RDW 14.7 % (11.9-15.9); WHITE BLOOD COUNT 3.6 K/mm3 (4.0-10.0)
[2019-05-04 15:02] LABS: ALBUMIN 3.7 g/dl (3.4-5.0); BILIRUBIN,TOTAL 0.4 mg/dL (0.2-1); BLOOD UREA NITROGEN 8.5 mg/dL (7-18); CALCIUM 8.6 mg/dL (8.5-10.1); CREATININE 0.9 mg/dL (0.55-1.3); POTASSIUM 3.7 mmol/L (3.5-5.1)
[2019-05-04] MEDS: chlordiazePOXIDE HCL 25 MG CAPSULE PO SCH ×2 (17:32→22:29)
[2019-05-04 17:49] LABS: PH,URINE 5.5 (5.0-8.0); URINE APPEARANCE TURBID; URINE BILIRUBIN NEGATIVE (NEGATIVE); URINE COLOR YELLOW; URINE GLUCOSE (UA) NEGATIVE (NEGATIVE); URINE KETONE 1+ (NEGATIVE); URINE LEUK ESTERASE NEGATIVE (NEGATIVE); URINE NITRITE NEGATIVE (NEGATIVE); URINE PROTEIN NEGATIVE (NEGATIVE); URINE UROBILINOGEN 0.2 mg/dL (0.2-1.0)
[2019-05-04] MEDS: THIAMINE HCL 100 MG TABLET (FP) PO SCH (22:29)
[2019-05-05] MEDS: chlordiazePOXIDE HCL 25 MG CAPSULE PO SCH ×4 (05:28→22:08)
--- NOTE | 2019-05-05 10:04 | PN ---
S CIWA - CIWA Score Nausea/Vomitin-No Nausea/No Vomiting Muscle Tremors: 2 Anxiety: 2 Agitation: 0-Normal Activity Paroxysmal Sweats: 3 Orientation: 0-Oriented Tacttile Disturbances: 0-None Auditory Disturbances: 0-None Visual Disturbances: 0-None Headache: 2-Mild CIWA-Ar Total Score: 9 [facility] Progress Note (SOAP) Subjective: c/o sweats, headache, and anxiety. Objective: 05/05/19 10:02 Vital Signs 05/05/19 05/05/19 05/05/19 03:30 06:00 07:15 Temperature 97.0 F L Pulse Rate 80 75 Respiratory 18 18 18 Rate Blood Pressure 141/108 H 137/91 05/05/19 09:21 Temperature 98.6 F Pulse Rate 82 Respiratory 18 Rate Blood Pressure 149/93 Lab Results WBC 3.6 K/mm3 (4.0-10.0) L 05/04/19 12:00 RBC 4.19 M/mm3 (4.00-5.60) 05/04/19 12:00 Hgb 12.5 GM/dL (11.7-16.9) 05/04/19 12:00 Hct 37.5 % (35.4-49) 05/04/19 12:00 MCV 89.5 fl (80-96) 05/04/19 12:00 MCHC 33.2 g/dl (32.0-35.9) 05/04/19 12:00 RDW 14.7 % (11.9-15.9) 05/04/19 12:00 Plt Count 251 K/MM3 (134-434) 05/04/19 12:00 Sodium 135 mmol/L (136-145) L 05/04/19 12:00 Potassium 3.7 mmol/L (3.5-5.1) 05/04/19 12:00 Chloride 104 mmol/L (98-107) 05/04/19 12:00 Carbon Dioxide 26 mmol/L (21-32) 05/04/19 12:00 Anion Gap 5 MMOL/L (8-16) L 05/04/19 12:00 BUN 8.5 mg/dL (7-18) 05/04/19 12:00 Creatinine 0.9 mg/dL (0.55-1.3) 05/04/19 12:00 Random Glucose 108 mg/dL (74-106) H 05/04/19 12:00 Calcium 8.6 mg/dL (8.5-10.1) 05/04/19 12:00 Labs noted. Assessment: 05/05/19 10:02 AOX3, in no acute respiratory distress Full ROM, ambulating in the unit. withdrawal symptoms. Plan: Continue detox.
[2019-05-05] MEDS: PRENATAL VITAMINS W/ FOLIC ACID TABLET (FP) PO SCH (10:12)
[2019-05-05] MEDS: THIAMINE HCL 100 MG TABLET (FP) PO SCH (22:08)
[2019-05-06] MEDS: chlordiazePOXIDE HCL 25 MG CAPSULE PO SCH ×2 (06:09→10:30)
[2019-05-06] MEDS: PRENATAL VITAMINS W/ FOLIC ACID TABLET (FP) PO SCH (10:30)
[2019-05-06 11:29] VITALS: BP 144/84; PULSE 72; TEMP 97.3
--- NOTE | 2019-05-06 12:02 | PN ---
S CIWA - CIWA Score Nausea/Vomitin Muscle Tremors: 2 Anxiety: 2 Agitation: 2 Paroxysmal Sweats: 2 Orientation: 0-Oriented Tacttile Disturbances: 1-Very Mild Itch/Numbness Auditory Disturbances: 1-Very Mild Visual Disturbances: 0-None Headache: 2-Mild CIWA-Ar Total Score: 14 S Progress Note (SOAP) Subjective: alert,irritable,anxious,interrupted sleep,tremor Objective: 05/06/19 12:01 Vital Signs Temperature 97.3 F L 05/06/19 10:00 Pulse Rate 72 05/06/19 10:00 Respiratory Rate 18 05/06/19 10:00 Blood Pressure 144/84 05/06/19 10:00 O2 Sat by Pulse Oximetry (%) Laboratory Last Values WBC 3.6 K/mm3 (4.0-10.0) L 05/04/19 12:00 RBC 4.19 M/mm3 (4.00-5.60) 05/04/19 12:00 Hgb 12.5 GM/dL (11.7-16.9) 05/04/19 12:00 Hct 37.5 % (35.4-49) 05/04/19 12:00 MCV 89.5 fl (80-96) 05/04/19 12:00 MCH 29.7 pg (25.7-33.7) 05/04/19 12:00 MCHC 33.2 g/dl (32.0-35.9) 05/04/19 12:00 RDW 14.7 % (11.9-15.9) 05/04/19 12:00 Plt Count 251 K/MM3 (134-434) 05/04/19 12:00 MPV 7.4 fl (7.5-11.1) L 05/04/19 12:00 Sodium 135 mmol/L (136-145) L 05/04/19 12:00 Potassium 3.7 mmol/L (3.5-5.1) 05/04/19 12:00 Chloride 104 mmol/L (98-107) 05/04/19 12:00 Carbon Dioxide 26 mmol/L (21-32) 05/04/19 12:00 Anion Gap 5 MMOL/L (8-16) L 05/04/19 12:00 BUN 8.5 mg/dL (7-18) 05/04/19 12:00 Creatinine 0.9 mg/dL (0.55-1.3) 05/04/19 12:00 Est GFR (CKD-EPI)AfAm 111.83 05/04/19 12:00 Est GFR (CKD-EPI)NonAf 96.49 05/04/19 12:00 Random Glucose 108 mg/dL (74-106) H 05/04/19 12:00 Calcium 8.6 mg/dL (8.5-10.1) 05/04/19 12:00 Total Bilirubin 0.4 mg/dL (0.2-1) 05/04/19 12:00 AST 23 U/L (15-37) 05/04/19 12:00 ALT 31 U/L (13-61) 05/04/19 12:00 Alkaline Phosphatase 50 U/L (45-117) 05/04/19 12:00 Total Protein 10.0 g/dl (6.4-8.2) H 05/04/19 12:00 Albumin 3.7 g/dl (3.4-5.0) 05/04/19 12:00 Urine Color Yellow 05/04/19 15:25 Urine Appearance Turbid 05/04/19 15:25 Urine pH 5.5 (5.0-8.0) 05/04/19 15:25 Ur Specific [place] 1.021 (1.010-1.035) 05/04/19 15:25 Urine Protein Negative (NEGATIVE) 05/04/19 15:25 Urine Glucose (UA) Negative (NEGATIVE) 05/04/19 15:25 Urine Ketones 1+ (NEGATIVE) H 05/04/19 15:25 Urine Blood Negative (NEGATIVE) 05/04/19 15:25 Urine Nitrite Negative (NEGATIVE) 05/04/19 15:25 Urine Bilirubin Negative (NEGATIVE) 05/04/19 15:25 Urine Urobilinogen 0.2 mg/dL (0.2-1.0) 05/04/19 15:25 Ur Leukocyte Esterase Negative (NEGATIVE) 05/04/19 15:25 RPR Titer Nonreactive (NONREACTIVE) 05/04/19 12:00 HIV 1&2 Antibody Screen Negative 05/04/19 12:00 HIV P24 Antigen Negative 05/04/19 12:00 Assessment: 05/06/19 12:02 withdrawal symptom Plan: continue detox
--- NOTE | 2019-05-06 13:01 | PN ---
[facility] Progress Note Note: patient did not want to complete treatment,all attempts to convince patient to stay with no avail, high risk of relapsing explained,patient understood,signed release AMA,seen by counselor advise to call 911 if not feeling well
--- NOTE | 2019-05-06 13:04 | DS ---
[facility] Detox Discharge Summary Admission Date: 05/04/19 Discharge Date: 05/06/19 - History Present History: Alcohol Dependence, Cannabis Dependence, Cocaine Dependence Additional Comments: patient signed release AMA - Physical Exam Results Vital Signs: Vital Signs Temperature 97.3 F L 05/06/19 10:00 Pulse Rate 72 05/06/19 10:00 Respiratory Rate 18 05/06/19 10:00 Blood Pressure 144/84 05/06/19 10:00 O2 Sat by Pulse Oximetry (%) Pertinent Admission Physical Exam Findings: withdrawal signs and symptom Laboratory Last Values WBC 3.6 K/mm3 (4.0-10.0) L 05/04/19 12:00 RBC 4.19 M/mm3 (4.00-5.60) 05/04/19 12:00 Hgb 12.5 GM/dL (11.7-16.9) 05/04/19 12:00 Hct 37.5 % (35.4-49) 05/04/19 12:00 MCV 89.5 fl (80-96) 05/04/19 12:00 MCH 29.7 pg (25.7-33.7) 05/04/19 12:00 MCHC 33.2 g/dl (32.0-35.9) 05/04/19 12:00 RDW 14.7 % (11.9-15.9) 05/04/19 12:00 Plt Count 251 K/MM3 (134-434) 05/04/19 12:00 MPV 7.4 fl (7.5-11.1) L 05/04/19 12:00 Sodium 135 mmol/L (136-145) L 05/04/19 12:00 Potassium 3.7 mmol/L (3.5-5.1) 05/04/19 12:00 Chloride 104 mmol/L (98-107) 05/04/19 12:00 Carbon Dioxide 26 mmol/L (21-32) 05/04/19 12:00 Anion Gap 5 MMOL/L (8-16) L 05/04/19 12:00 BUN 8.5 mg/dL (7-18) 05/04/19 12:00 Creatinine 0.9 mg/dL (0.55-1.3) 05/04/19 12:00 Est GFR (CKD-EPI)AfAm 111.83 05/04/19 12:00 Est GFR (CKD-EPI)NonAf 96.49 05/04/19 12:00 Random Glucose 108 mg/dL (74-106) H 05/04/19 12:00 Calcium 8.6 mg/dL (8.5-10.1) 05/04/19 12:00 Total Bilirubin 0.4 mg/dL (0.2-1) 05/04/19 12:00 AST 23 U/L (15-37) 05/04/19 12:00 ALT 31 U/L (13-61) 05/04/19 12:00 Alkaline Phosphatase 50 U/L (45-117) 05/04/19 12:00 Total Protein 10.0 g/dl (6.4-8.2) H 05/04/19 12:00 Albumin 3.7 g/dl (3.4-5.0) 05/04/19 12:00 Urine Color Yellow 05/04/19 15:25 Urine Appearance Turbid 05/04/19 15:25 Urine pH 5.5 (5.0-8.0) 05/04/19 15:25 Ur Specific [place] 1.021 (1.010-1.035) 05/04/19 15:25 Urine Protein Negative (NEGATIVE) 05/04/19 15:25 Urine Glucose (UA) Negative (NEGATIVE) 05/04/19 15:25 Urine Ketones 1+ (NEGATIVE) H 05/04/19 15:25 Urine Blood Negative (NEGATIVE) 05/04/19 15:25 Urine Nitrite Negative (NEGATIVE) 05/04/19 15:25 Urine Bilirubin Negative (NEGATIVE) 05/04/19 15:25 Urine Urobilinogen 0.2 mg/dL (0.2-1.0) 05/04/19 15:25 Ur Leukocyte Esterase Negative (NEGATIVE) 05/04/19 15:25 RPR Titer Nonreactive (NONREACTIVE) 05/04/19 12:00 HIV 1&2 Antibody Screen Negative 05/04/19 12:00 HIV P24 Antigen Negative 05/04/19 12:00 Vital Signs Temperature 97.3 F L 05/06/19 10:00 Pulse Rate 72 05/06/19 10:00 Respiratory Rate 18 05/06/19 10:00 Blood Pressure 144/84 05/06/19 10:00 O2 Sat by Pulse Oximetry (%) - Medication Discharge Medications: Ambulatory Orders NK [No Known Home Medication] 03/21/19 - Diagnosis (1) Alcohol dependence with uncomplicated withdrawal Current Visit: No Status: Chronic (2) Marijuana dependence Current Visit: No Status: Chronic (3) Nicotine dependence Current Visit: No Status: Chronic Qualifiers: Nicotine product type: cigarettes Substance use status: uncomplicated Qualified Code(s): F17.210 - Nicotine dependence, cigarettes, uncomplicated (4) Syncope Current Visit: Yes Status: Acute (5) Hypertension Current Visit: No Status: Chronic Qualifiers: Hypertension type: essential hypertension Qualified Code(s): I10 - Essential (primary) hypertension - AMA Did Patient Leave Against Medical Advice: Yes
[2019-05-07] MEDS ORDERED: chlordiazePOXIDE HCL 10 MG CAPSULE PO PRN
[2019-05-07] MEDS ORDERED: chlordiazePOXIDE HCL 10 MG CAPSULE PO SCH (05:00)
[2019-05-08] MEDS ORDERED: chlordiazePOXIDE HCL 10 MG CAPSULE PO SCH (05:00)
[2019-05-09] MEDS ORDERED: chlordiazePOXIDE HCL 10 MG CAPSULE PO ONE (05:00)
== END 2019-05-06 14:15 | disposition left against medical advice (07) | DRG 770 ==
LOC: YASAS 11:00 → Y6N 12:10
PROVIDERS: ADMIT Surgery; ATTEND Surgery
PROC: HZ2ZZZZ Detoxification Services for Substance Abuse Treatment (ICD-10-PCS; principal; 2019-05-04)
DX: F10.230 Alcohol dependence with withdrawal, uncomplicated (principal); F14.20 Cocaine dependence, uncomplicated; F12.20 Cannabis dependence, uncomplicated; I10 Essential (primary) hypertension; R55 Syncope and collapse; Z87.891 Personal history of nicotine dependence
CPT/HCPCS: 36415; 80053; 81003; 85027; 86593; 87389

== ENCOUNTER 2019-06-01 10:50 | Inpatient (IN) | payer OTHER | END 2019-06-06 12:25 | disposition other institution (70) | LOC: YASAS 10:50 → Y3N 12:20 ==

== ENCOUNTER 2019-07-08 08:53 | Inpatient (IN) | payer OTHER ==
[2019-07-08 10:28] VITALS: BMI 27.3
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
[2019-07-08] MEDS ORDERED: MENTHOL/PHENOL 1 EACH UD MM PRN (11:41)
[2019-07-08] MEDS ORDERED: MAGNESIUM CITRATE 300 ML BOTTLE PO PRN (11:41)
[2019-07-08] MEDS ORDERED: MAGNESIUM HYDROX 2400MG/30ML ORAL SUSPENSION 30 ML CUP PO PRN (11:41)
[2019-07-08] MEDS ORDERED: MAG HYDROX/AL HYDROX/SIMETH 30 ML UNIT-DOSE CUP PO PRN (11:41)
[2019-07-08] MEDS ORDERED: hydrOXYzine PAMOATE 25 MG CAPSULE (FP) PO PRN (11:41)
[2019-07-08] MEDS ORDERED: BISMUTH SUBSALICYLATE 524 MG/30 ML UD PO PRN (11:41)
[2019-07-08] MEDS ORDERED: ACETAMINOPHEN 325 MG TABLET (FP) PO PRN ×2 (11:41)
[2019-07-08] MEDS ORDERED: chlordiazePOXIDE HCL 10 MG CAPSULE PO PRN (11:42)
[2019-07-08] MEDS ORDERED: chlordiazePOXIDE HCL 25 MG CAPSULE PO ONE (11:42)
[2019-07-08] MEDS: chlordiazePOXIDE HCL 25 MG CAPSULE PO SCH ×2 (13:04→21:41)
[2019-07-08 18:15] LABS: BASO % 0.3 % (0-2.0); HEMOGLOBIN 12.5 GM/dL (11.7-16.9); LYMPH % 30.7 % (8-40); MCH 30.3 pg (25.7-33.7); MCHC 32.8 g/dl (32.0-35.9); MEAN CELL VOLUME 92.4 fl (80-96); MEAN PLT VOLUME 7.4 fl (7.5-11.1); MONO % 9.1 % (3.8-10.2); NEUT % 57.9 % (42.8-82.8); PLATELET COUNT 261 K/MM3 (134-434); RBC 4.11 M/mm3 (4.00-5.60); RDW 15.2 % (11.9-15.9)
[2019-07-08 18:20] LABS: ALBUMIN 3.8 g/dl (3.4-5.0); BILIRUBIN,TOTAL 0.4 mg/dL (0.2-1); BLOOD UREA NITROGEN 9.6 mg/dL (7-18); CALCIUM 9.3 mg/dL (8.5-10.1); CREATININE 1.2 mg/dL (0.55-1.3); TOT PROT 10.5 g/dl (6.4-8.2)
[2019-07-08] MEDS: THIAMINE HCL 100 MG TABLET (FP) PO SCH (21:41)
[2019-07-08] MEDS: MELATONIN 5 MG TABLETS PO PRN (21:41)
[2019-07-09] MEDS: chlordiazePOXIDE HCL 25 MG CAPSULE PO SCH ×3 (06:10→22:05)
[2019-07-09] MEDS: PRENATAL VITAMINS W/ FOLIC ACID TABLET (FP) PO SCH (10:38)
--- NOTE | 2019-07-09 16:14 | PN ---
S CIWA - CIWA Score Nausea/Vomitin-No Nausea/No Vomiting Muscle Tremors: 3 Anxiety: 3 Agitation: 2 Paroxysmal Sweats: 2 Orientation: 0-Oriented Tacttile Disturbances: 1-Very Mild Itch/Numbness Auditory Disturbances: 0-None Visual Disturbances: 2-Mild Sensitivity Headache: 0-None Present CIWA-Ar Total Score: 13 B[facility] Progress Note (SOAP) Subjective: Anxious, Tremors, Sweating, Interrupted Sleep. Objective: PATIENT A & O X 3, OBSERVED AMBULATING ON DETOX UNIT UNASSISTED. IN NO ACUTE DISTRESS. 07/09/19 16:14 Vital Signs Temperature 96.8 F L 07/09/19 13:14 Pulse Rate 64 07/09/19 13:14 Respiratory Rate 18 07/09/19 13:14 Blood Pressure 137/93 07/09/19 13:14 O2 Sat by Pulse Oximetry (%) Laboratory Tests 07/08/19 07/08/19 13:15 13:15 WBC 5.0 RBC 4.11 Hgb 12.5 Hct 38.0 MCV 92.4 MCH 30.3 MCHC 32.8 RDW 15.2 Plt Count 261 MPV 7.4 L Absolute Neuts (auto) 2.9 Neutrophils % 57.9 Lymphocytes % 30.7 Monocytes % 9.1 Eosinophils % 2.0 Basophils % 0.3 Nucleated RBC % 0 Sodium 138 Potassium 4.0 Chloride 107 Carbon Dioxide 29 Anion Gap 2 L BUN 9.6 Creatinine 1.2 Est GFR (CKD-EPI)AfAm 78.43 Est GFR (CKD-EPI)NonAf 67.67 Random Glucose 99 Calcium 9.3 Total Bilirubin 0.4 AST 13 L ALT 21 Alkaline Phosphatase 59 Total Protein 10.5 H Albumin 3.8 labs noted. Assessment: 07/09/19 16:15 WITHDRAWAL SYMPTOMS. Plan: CONTINUE DETOX.
[2019-07-09] MEDS: MELATONIN 5 MG TABLETS PO PRN (22:06)
[2019-07-09] MEDS: THIAMINE HCL 100 MG TABLET (FP) PO SCH (22:07)
[2019-07-10] MEDS: IBUPROFEN 400 MG TABLET (FP) PO PRN ×2 (02:54→23:55)
[2019-07-10] MEDS: chlordiazePOXIDE 5 MG CAPSULE PO SCH ×3 (05:35→21:33)
[2019-07-10] MEDS: PRENATAL VITAMINS W/ FOLIC ACID TABLET (FP) PO SCH (10:09)
--- NOTE | 2019-07-10 15:19 | PN ---
S CIWA - CIWA Score Nausea/Vomitin-Mild Nausea/No Vomiting Muscle Tremors: 2 Anxiety: 3 Agitation: 2 Paroxysmal Sweats: 2 Orientation: 0-Oriented Tacttile Disturbances: 0-None Auditory Disturbances: 0-None Visual Disturbances: 0-None Headache: 2-Mild CIWA-Ar Total Score: 12 S Progress Note (SOAP) Subjective: 54 years old male 6th patient [facility] admission since 2019 was admitted on 07/08/19 for alcohol withdrawal sx management doing well with libirum detox regimen less tremor sleep better at night Objective: 07/10/19 15:21 Vital Signs Temperature 97.0 F L 07/10/19 13:22 Pulse Rate 78 07/10/19 13:22 Respiratory Rate 18 07/10/19 13:22 Blood Pressure 137/93 07/10/19 13:22 O2 Sat by Pulse Oximetry (%) Laboratory Last Values WBC 5.0 K/mm3 (4.0-10.0) 07/08/19 13:15 RBC 4.11 M/mm3 (4.00-5.60) 07/08/19 13:15 Hgb 12.5 GM/dL (11.7-16.9) 07/08/19 13:15 Hct 38.0 % (35.4-49) 07/08/19 13:15 MCV 92.4 fl (80-96) 07/08/19 13:15 MCH 30.3 pg (25.7-33.7) 07/08/19 13:15 MCHC 32.8 g/dl (32.0-35.9) 07/08/19 13:15 RDW 15.2 % (11.9-15.9) 07/08/19 13:15 Plt Count 261 K/MM3 (134-434) 07/08/19 13:15 MPV 7.4 fl (7.5-11.1) L 07/08/19 13:15 Absolute Neuts (auto) 2.9 K/mm3 (1.5-8.0) 07/08/19 13:15 Neutrophils % 57.9 % (42.8-82.8) 07/08/19 13:15 Lymphocytes % 30.7 % (8-40) 07/08/19 13:15 Monocytes % 9.1 % (3.8-10.2) 07/08/19 13:15 Eosinophils % 2.0 % (0-4.5) 07/08/19 13:15 Basophils % 0.3 % (0-2.0) 07/08/19 13:15 Nucleated RBC % 0 % (0-0) 07/08/19 13:15 Sodium 138 mmol/L (136-145) 07/08/19 13:15 Potassium 4.0 mmol/L (3.5-5.1) 07/08/19 13:15 Chloride 107 mmol/L (98-107) 07/08/19 13:15 Carbon Dioxide 29 mmol/L (21-32) 07/08/19 13:15 Anion Gap 2 MMOL/L (8-16) L 07/08/19 13:15 BUN 9.6 mg/dL (7-18) 07/08/19 13:15 Creatinine 1.2 mg/dL (0.55-1.3) 07/08/19 13:15 Est GFR (CKD-EPI)AfAm 78.43 07/08/19 13:15 Est GFR (CKD-EPI)NonAf 67.67 07/08/19 13:15 Random Glucose 99 mg/dL (74-106) 07/08/19 13:15 Calcium 9.3 mg/dL (8.5-10.1) 07/08/19 13:15 Total Bilirubin 0.4 mg/dL (0.2-1) 07/08/19 13:15 AST 13 U/L (15-37) L 07/08/19 13:15 ALT 21 U/L (13-61) 07/08/19 13:15 Alkaline Phosphatase 59 U/L (45-117) 07/08/19 13:15 Total Protein 10.5 g/dl (6.4-8.2) H 07/08/19 13:15 Albumin 3.8 g/dl (3.4-5.0) 07/08/19 13:15 lab noted Assessment: 07/10/19 15:22 alcohol withdrawal sx Plan: continue librim detox regimen
[2019-07-10] MEDS ORDERED: cloNIDine HCL 0.1 MG TABLET PO PRN (15:21)
[2019-07-10] MEDS: MELATONIN 5 MG TABLETS PO PRN (21:32)
[2019-07-10] MEDS: THIAMINE HCL 100 MG TABLET (FP) PO SCH (21:35)
[2019-07-11] MEDS ORDERED: chlordiazePOXIDE HCL 10 MG CAPSULE PO PRN
[2019-07-11] MEDS: chlordiazePOXIDE HCL 10 MG CAPSULE PO SCH ×3 (05:56→21:09)
[2019-07-11] MEDS: PRENATAL VITAMINS W/ FOLIC ACID TABLET (FP) PO SCH (10:12)
--- NOTE | 2019-07-11 15:02 | PN ---
S CIWA - CIWA Score Nausea/Vomitin-No Nausea/No Vomiting Muscle Tremors: 3 Anxiety: 2 Agitation: 1-Slight > Activity Paroxysmal Sweats: 2 Orientation: 0-Oriented Tacttile Disturbances: 0-None Auditory Disturbances: 0-None Visual Disturbances: 0-None Headache: 0-None Present CIWA-Ar Total Score: 8 S Progress Note (SOAP) Subjective: doing well with librium detox regimen discuss aftercare with staff prefers [facility] requests leaving the detox unit around 6-7 am that he needs to collect some clothing from home to [facility] Objective: 07/11/19 15:03 Vital Signs Temperature 97.4 F L 07/11/19 13:30 Pulse Rate 70 07/11/19 13:30 Respiratory Rate 18 07/11/19 13:30 Blood Pressure 150/91 07/11/19 13:30 O2 Sat by Pulse Oximetry (%) Laboratory Last Values WBC 5.0 K/mm3 (4.0-10.0) 07/08/19 13:15 RBC 4.11 M/mm3 (4.00-5.60) 07/08/19 13:15 Hgb 12.5 GM/dL (11.7-16.9) 07/08/19 13:15 Hct 38.0 % (35.4-49) 07/08/19 13:15 MCV 92.4 fl (80-96) 07/08/19 13:15 MCH 30.3 pg (25.7-33.7) 07/08/19 13:15 MCHC 32.8 g/dl (32.0-35.9) 07/08/19 13:15 RDW 15.2 % (11.9-15.9) 07/08/19 13:15 Plt Count 261 K/MM3 (134-434) 07/08/19 13:15 MPV 7.4 fl (7.5-11.1) L 07/08/19 13:15 Absolute Neuts (auto) 2.9 K/mm3 (1.5-8.0) 07/08/19 13:15 Neutrophils % 57.9 % (42.8-82.8) 07/08/19 13:15 Lymphocytes % 30.7 % (8-40) 07/08/19 13:15 Monocytes % 9.1 % (3.8-10.2) 07/08/19 13:15 Eosinophils % 2.0 % (0-4.5) 07/08/19 13:15 Basophils % 0.3 % (0-2.0) 07/08/19 13:15 Nucleated RBC % 0 % (0-0) 07/08/19 13:15 Sodium 138 mmol/L (136-145) 07/08/19 13:15 Potassium 4.0 mmol/L (3.5-5.1) 07/08/19 13:15 Chloride 107 mmol/L (98-107) 07/08/19 13:15 Carbon Dioxide 29 mmol/L (21-32) 07/08/19 13:15 Anion Gap 2 MMOL/L (8-16) L 07/08/19 13:15 BUN 9.6 mg/dL (7-18) 07/08/19 13:15 Creatinine 1.2 mg/dL (0.55-1.3) 07/08/19 13:15 Est GFR (CKD-EPI)AfAm 78.43 07/08/19 13:15 Est GFR (CKD-EPI)NonAf 67.67 07/08/19 13:15 Random Glucose 99 mg/dL (74-106) 07/08/19 13:15 Calcium 9.3 mg/dL (8.5-10.1) 07/08/19 13:15 Total Bilirubin 0.4 mg/dL (0.2-1) 07/08/19 13:15 AST 13 U/L (15-37) L 07/08/19 13:15 ALT 21 U/L (13-61) 07/08/19 13:15 Alkaline Phosphatase 59 U/L (45-117) 07/08/19 13:15 Total Protein 10.5 g/dl (6.4-8.2) H 07/08/19 13:15 Albumin 3.8 g/dl (3.4-5.0) 07/08/19 13:15 lab noted one isolated incidence bp elevation 07/11/19 15:04 Assessment: 07/11/19 15:05 alcohol withdrawal sx Plan: continue librium detox regimen
[2019-07-11] MEDS: MELATONIN 5 MG TABLETS PO PRN (21:09)
[2019-07-11] MEDS: THIAMINE HCL 100 MG TABLET (FP) PO SCH (21:09)
[2019-07-11] MEDS: IBUPROFEN 400 MG TABLET (FP) PO PRN (22:50)
[2019-07-12] MEDS ORDERED: chlordiazePOXIDE HCL 10 MG CAPSULE PO ONE (05:00)
[2019-07-12 06:20] VITALS: BP 137/81; PULSE 77; TEMP 96.4
--- NOTE | 2019-07-12 11:27 | DS ---
[facility] Detox Discharge Summary Admission Date: 07/08/19 Discharge Date: 07/12/19 - History Present History: Alcohol Dependence Additional Comments: 54 years old male admitted on 07/08/19 for alcohol withdrawal sx management no complication through out the detox stay patient left around 630 am today physical assessment can not be done ciwa unable to obtain - Physical Exam Results Vital Signs: Vital Signs Temperature 96.4 F L 07/12/19 06:19 Pulse Rate 77 07/12/19 06:19 Respiratory Rate 18 07/12/19 06:19 Blood Pressure 137/81 07/12/19 06:19 O2 Sat by Pulse Oximetry (%) Pertinent Admission Physical Exam Findings: alcohol withdrawal sx Laboratory Last Values WBC 5.0 K/mm3 (4.0-10.0) 07/08/19 13:15 RBC 4.11 M/mm3 (4.00-5.60) 07/08/19 13:15 Hgb 12.5 GM/dL (11.7-16.9) 07/08/19 13:15 Hct 38.0 % (35.4-49) 07/08/19 13:15 MCV 92.4 fl (80-96) 07/08/19 13:15 MCH 30.3 pg (25.7-33.7) 07/08/19 13:15 MCHC 32.8 g/dl (32.0-35.9) 07/08/19 13:15 RDW 15.2 % (11.9-15.9) 07/08/19 13:15 Plt Count 261 K/MM3 (134-434) 07/08/19 13:15 MPV 7.4 fl (7.5-11.1) L 07/08/19 13:15 Absolute Neuts (auto) 2.9 K/mm3 (1.5-8.0) 07/08/19 13:15 Neutrophils % 57.9 % (42.8-82.8) 07/08/19 13:15 Lymphocytes % 30.7 % (8-40) 07/08/19 13:15 Monocytes % 9.1 % (3.8-10.2) 07/08/19 13:15 Eosinophils % 2.0 % (0-4.5) 07/08/19 13:15 Basophils % 0.3 % (0-2.0) 07/08/19 13:15 Nucleated RBC % 0 % (0-0) 07/08/19 13:15 Sodium 138 mmol/L (136-145) 07/08/19 13:15 Potassium 4.0 mmol/L (3.5-5.1) 07/08/19 13:15 Chloride 107 mmol/L (98-107) 07/08/19 13:15 Carbon Dioxide 29 mmol/L (21-32) 07/08/19 13:15 Anion Gap 2 MMOL/L (8-16) L 07/08/19 13:15 BUN 9.6 mg/dL (7-18) 07/08/19 13:15 Creatinine 1.2 mg/dL (0.55-1.3) 07/08/19 13:15 Est GFR (CKD-EPI)AfAm 78.43 07/08/19 13:15 Est GFR (CKD-EPI)NonAf 67.67 07/08/19 13:15 Random Glucose 99 mg/dL (74-106) 07/08/19 13:15 Calcium 9.3 mg/dL (8.5-10.1) 07/08/19 13:15 Total Bilirubin 0.4 mg/dL (0.2-1) 07/08/19 13:15 AST 13 U/L (15-37) L 07/08/19 13:15 ALT 21 U/L (13-61) 07/08/19 13:15 Alkaline Phosphatase 59 U/L (45-117) 07/08/19 13:15 Total Protein 10.5 g/dl (6.4-8.2) H 07/08/19 13:15 Albumin 3.8 g/dl (3.4-5.0) 07/08/19 13:15 lab noted - Treatment Hospital Course: Detox Protocol Followed, Detoxed Safely, Responded well, Discharged Condition Good, Rehab Referral Accepted Patient has Accepted a [facility] Referral [facility]: [facility] - Medication Discharge Medications: Ambulatory Orders NK [No Known Home Medication] 03/21/19 - Diagnosis (1) Alcohol dependence with uncomplicated withdrawal Status: Acute (2) Hypertension Status: Chronic Qualifiers: Hypertension type: unspecified Qualified Code(s): I10 - Essential (primary ) hypertension - AMA Did Patient Leave Against Medical Advice: No
== END 2019-07-12 06:31 | disposition home or self-care (01) | DRG 774 ==
LOC: YASAS 08:53 → Y3N 12:08
PROVIDERS: ADMIT Surgery; ATTEND Surgery
PROC: HZ2ZZZZ Detoxification Services for Substance Abuse Treatment (ICD-10-PCS; principal; 2019-07-08)
DX: F10.230 Alcohol dependence with withdrawal, uncomplicated (principal); F14.988 Cocaine use, unspecified with other cocaine-induced disorder; F12.20 Cannabis dependence, uncomplicated; I10 Essential (primary) hypertension
CPT/HCPCS: 36415; 80053; 85025

== ENCOUNTER 2019-07-29 09:16 | Inpatient (IN) | payer OTHER ==
[2019-07-29 09:29] VITALS: BMI 27.2
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
[2019-07-29] MEDS ORDERED: MAGNESIUM HYDROX 2400MG/30ML ORAL SUSPENSION 30 ML CUP PO PRN (09:56)
[2019-07-29] MEDS ORDERED: MAGNESIUM CITRATE 300 ML BOTTLE PO PRN (09:56)
[2019-07-29] MEDS ORDERED: MENTHOL/PHENOL 1 EACH UD MM PRN (09:56)
[2019-07-29] MEDS ORDERED: BISMUTH SUBSALICYLATE 262 MG/15 ML BTL PO PRN (09:56)
[2019-07-29] MEDS ORDERED: IBUPROFEN 400 MG TABLET (FP) PO PRN (09:56)
[2019-07-29] MEDS ORDERED: MAG HYDROX/AL HYDROX/SIMETH 30 ML UNIT-DOSE CUP PO PRN (09:56)
[2019-07-29] MEDS ORDERED: ACETAMINOPHEN 325 MG TABLET (FP) PO PRN ×2 (09:56)
[2019-07-29] MEDS ORDERED: hydrOXYzine PAMOATE 25 MG CAPSULE (FP) PO PRN (09:56)
[2019-07-29] MEDS ORDERED: MELATONIN 5 MG TABLETS PO PRN (09:56)
[2019-07-29] MEDS ORDERED: chlordiazePOXIDE HCL 10 MG CAPSULE PO PRN (09:57)
[2019-07-29] MEDS: chlordiazePOXIDE HCL 25 MG CAPSULE PO SCH ×2 (12:17→21:03)
[2019-07-29] MEDS: PRENATAL VITAMINS W/ FOLIC ACID TABLET (FP) PO SCH (12:17)
[2019-07-29] MEDS ORDERED: THIAMINE HCL 100 MG TABLET (FP) PO SCH (22:00)
[2019-07-30] MEDS: chlordiazePOXIDE HCL 25 MG CAPSULE PO SCH (05:53)
[2019-07-30] MEDS: chlordiazePOXIDE 5 MG CAPSULE PO SCH ×2 (08:20→13:03)
[2019-07-30] MEDS: PRENATAL VITAMINS W/ FOLIC ACID TABLET (FP) PO SCH (10:12)
--- NOTE | 2019-07-30 16:39 | PN ---
S CIWA - CIWA Score Nausea/Vomitin-No Nausea/No Vomiting Muscle Tremors: None Anxiety: 3 Agitation: 3 Paroxysmal Sweats: No Perspiration Orientation: 0-Oriented Tacttile Disturbances: 0-None Auditory Disturbances: 0-None Visual Disturbances: 1-Very Mild Sensitivity Headache: 0-None Present CIWA-Ar Total Score: 7 BHS Progress Note (SOAP) Subjective: Anxious, Restless. Objective: PATIENT A & O X 3, OBSERVED AMBULATING ON DETOX UNIT UNASSISTED. IN NO ACUTE DISTRESS. 07/30/19 16:40 Vital Signs Temperature 97.3 F L 07/30/19 13:23 Pulse Rate 66 07/30/19 13:23 Respiratory Rate 18 07/30/19 13:23 Blood Pressure 131/86 07/30/19 13:23 O2 Sat by Pulse Oximetry (%) RESULTS OF LABS FROM 07/08/2019 NOTED. 07/30/19 16:41 Assessment: 07/30/19 16:42 WITHDRAWAL SYMPTOMS. Plan: CONTINUE DETOX.
--- NOTE | 2019-07-30 17:00 | PN ---
[facility] Progress Note Note: patient would like to leave due to emergency problem in the family,all attempts to convince patient to stay with no avail, singed release ama,high risk of relapsing ,advise to call 911 if emergency situation arrive
--- NOTE | 2019-07-30 17:06 | DS ---
[facility] Detox Discharge Summary Admission Date: 07/29/19 Discharge Date: 07/30/19 - History Present History: Alcohol Dependence, Cannabis Dependence Additional Comments: patient signed release AMA Pertinent Past History: hypertension syncope - Physical Exam Results Vital Signs: Vital Signs Temperature 97.3 F L 07/30/19 13:23 Pulse Rate 66 07/30/19 13:23 Respiratory Rate 18 07/30/19 13:23 Blood Pressure 131/86 07/30/19 13:23 O2 Sat by Pulse Oximetry (%) Pertinent Admission Physical Exam Findings: withdrawal signs and symptom Vital Signs Temperature 97.3 F L 07/30/19 13:23 Pulse Rate 66 07/30/19 13:23 Respiratory Rate 18 07/30/19 13:23 Blood Pressure 131/86 07/30/19 13:23 O2 Sat by Pulse Oximetry (%) - Medication Discharge Medications: Ambulatory Orders NK [No Known Home Medication] 03/21/19 - Diagnosis (1) Alcohol dependence with uncomplicated withdrawal Current Visit: No Status: Acute (2) Cannabis dependence Current Visit: No Status: Acute (3) Syncope Current Visit: No Status: Acute Qualifiers: Encounter type: sequela (4) Hypertension Current Visit: No Status: Chronic Qualifiers: Hypertension type: unspecified Qualified Code(s): I10 - Essential (primary ) hypertension - AMA Did Patient Leave Against Medical Advice: Yes
[2019-07-30 17:09] VITALS: BP 134/89; PULSE 75; TEMP 96.7
[2019-07-31] MEDS ORDERED: chlordiazePOXIDE HCL 10 MG CAPSULE PO SCH (05:00)
[2019-08-01] MEDS ORDERED: chlordiazePOXIDE HCL 10 MG CAPSULE PO ONE (05:00)
== END 2019-07-30 17:15 | disposition left against medical advice (07) | DRG 770 ==
LOC: YASAS 09:16 → Y3N 10:43
PROVIDERS: ADMIT Surgery; ATTEND Surgery
PROC: HZ2ZZZZ Detoxification Services for Substance Abuse Treatment (ICD-10-PCS; principal; 2019-07-29)
DX: F10.230 Alcohol dependence with withdrawal, uncomplicated (principal); F12.20 Cannabis dependence, uncomplicated; I10 Essential (primary) hypertension; Z87.891 Personal history of nicotine dependence

== ENCOUNTER 2019-10-21 08:16 | Inpatient (IN) | payer OTHER ==
[2019-10-21 08:56] VITALS: BMI 27.8
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
[2019-10-21] MEDS ORDERED: MAGNESIUM CITRATE 300 ML BOTTLE PO PRN (09:33)
[2019-10-21] MEDS ORDERED: hydrOXYzine PAMOATE 25 MG CAPSULE (FP) PO PRN (09:33)
[2019-10-21] MEDS ORDERED: ACETAMINOPHEN 325 MG TABLET (FP) PO PRN ×2 (09:33)
[2019-10-21] MEDS ORDERED: BISMUTH SUBSALICYLATE 262 MG/15 ML BTL PO PRN (09:33)
[2019-10-21] MEDS ORDERED: MAGNESIUM HYDROX 2400MG/30ML ORAL SUSPENSION 30 ML CUP PO PRN (09:33)
[2019-10-21] MEDS ORDERED: MAG HYDROX/AL HYDROX/SIMETH 30 ML UNIT-DOSE CUP PO PRN (09:33)
[2019-10-21] MEDS ORDERED: MENTHOL/PHENOL 1 EACH UD MM PRN (09:33)
[2019-10-21] MEDS: chlordiazePOXIDE HCL 25 MG CAPSULE PO PRN ×2 (10:06→18:02)
[2019-10-21] MEDS: PRENATAL VITAMINS W/ FOLIC ACID TABLET (FP) PO SCH (10:06)
[2019-10-21] MEDS: METHOCARBAMOL 500 MG TABLET PO PRN ×2 (10:06→22:08)
[2019-10-21] MEDS: chlordiazePOXIDE HCL 25 MG CAPSULE PO SCH ×3 (10:07→22:08)
[2019-10-21] MEDS: IBUPROFEN 400 MG TABLET (FP) PO PRN (10:07)
[2019-10-21 12:28] LABS: HEMATOCRIT 36.6 % (35.4-49); MCHC 32.9 g/dl (32.0-35.9); MEAN CELL VOLUME 91.1 fl (80-96); MEAN PLT VOLUME 7.2 fl (7.5-11.1); PLATELET COUNT 260 K/MM3 (134-434); RBC 4.01 M/mm3 (4.00-5.60); RDW 15.2 % (11.9-15.9); WHITE BLOOD COUNT 3.7 K/mm3 (4.0-10.0)
[2019-10-21 12:40] LABS: ALBUMIN 3.7 g/dl (3.4-5.0); BILIRUBIN,TOTAL 0.3 mg/dL (0.2-1); CALCIUM 9.2 mg/dL (8.5-10.1); POTASSIUM 4.1 mmol/L (3.5-5.1); TOT PROT 11.2 g/dl (6.4-8.2)
[2019-10-21] MEDS: THIAMINE HCL 100 MG TABLET (FP) PO SCH (22:08)
[2019-10-21] MEDS: MELATONIN 5 MG TABLETS PO PRN (22:08)
[2019-10-22] MEDS: chlordiazePOXIDE HCL 25 MG CAPSULE PO SCH ×3 (05:09→21:52)
[2019-10-22] MEDS: chlordiazePOXIDE HCL 25 MG CAPSULE PO PRN (06:13)
[2019-10-22] MEDS ORDERED: chlordiazePOXIDE HCL 10 MG CAPSULE PO PRN (09:57)
--- NOTE | 2019-10-22 10:10 | PN ---
[facility] CIWA - CIWA Score Nausea/Vomitin-Mild Nausea/No Vomiting Muscle Tremors: 2 Anxiety: 1-Mildly Anxious Agitation: 1-Slight > Activity Paroxysmal Sweats: 1-Minimal Palms Moist Orientation: 1-Uncertain about Date Tacttile Disturbances: 0-None Auditory Disturbances: 0-None Visual Disturbances: 0-None Headache: 1-Very Mild CIWA-Ar Total Score: 8 BHS Progress Note (SOAP) Subjective: pt states 50mg dose of librium is too high. Pt would like to leave on Thursday. So will give 25mg TID today and 15mg TID and 10mg on thursday before he leaves. O: Vital Signs - 24 hr 10/21/19 10/21/19 10/21/19 13:44 18:46 20:59 Temperature 96.6 F L 97.9 F 97.0 F L Pulse Rate 85 76 77 Respiratory 18 17 18 Rate Blood Pressure 131/85 142/52 L 140/94 10/22/19 10/22/19 10/22/19 03:30 07:32 07:53 Temperature 97.7 F 97.7 F Pulse Rate 99 H 99 H Respiratory 18 18 18 Rate Blood Pressure 90/57 L 90/57 L 10/22/19 09:51 Temperature 96.3 F L Pulse Rate 76 Respiratory 18 Rate Blood Pressure 136/84 Laboratory Tests 10/21/19 10/21/19 10/21/19 09:40 09:40 09:40 WBC 3.7 L RBC 4.01 Hgb 12.0 Hct 36.6 MCV 91.1 MCH 30.0 MCHC 32.9 RDW 15.2 Plt Count 260 MPV 7.2 L Sodium 135 L Potassium 4.1 Chloride 105 Carbon Dioxide 26 Anion Gap 4 L BUN 14.0 Creatinine 1.0 Est GFR (CKD-EPI)AfAm 97.77 Est GFR (CKD-EPI)NonAf 84.35 Random Glucose 99 Calcium 9.2 Total Bilirubin 0.3 AST 14 L ALT 27 Alkaline Phosphatase 50 Total Protein 11.2 H Albumin 3.7 RPR Titer Nonreactive a/p: alcohol use disorder- librium detox pt has f/u with outpt program
[2019-10-22] MEDS: PRENATAL VITAMINS W/ FOLIC ACID TABLET (FP) PO SCH (10:41)
[2019-10-22] MEDS: IBUPROFEN 400 MG TABLET (FP) PO PRN (19:04)
[2019-10-22] MEDS: THIAMINE HCL 100 MG TABLET (FP) PO SCH (23:03)
[2019-10-22] MEDS: MELATONIN 5 MG TABLETS PO PRN (23:04)
[2019-10-22] MEDS: METHOCARBAMOL 500 MG TABLET PO PRN (23:04)
[2019-10-23] MEDS ORDERED: chlordiazePOXIDE HCL 25 MG CAPSULE PO SCH (05:00)
[2019-10-23] MEDS: chlordiazePOXIDE 5 MG CAPSULE PO SCH ×3 (07:08→22:44)
[2019-10-23] MEDS: PRENATAL VITAMINS W/ FOLIC ACID TABLET (FP) PO SCH (10:05)
--- NOTE | 2019-10-23 12:31 | PN ---
[facility] CIWA - CIWA Score Nausea/Vomitin-No Nausea/No Vomiting Muscle Tremors: None Anxiety: 3 Agitation: 0-Normal Activity Paroxysmal Sweats: 3 Orientation: 0-Oriented Tacttile Disturbances: 0-None Auditory Disturbances: 0-None Visual Disturbances: 0-None Headache: 1-Very Mild CIWA-Ar Total Score: 7 S Progress Note (SOAP) Subjective: c/o headache, anxiety, and sweats. Objective: 10/23/19 12:30 Vital Signs 10/23/19 10/23/19 06:18 10:09 Temperature 97 F L 97 F L Pulse Rate 82 80 Respiratory 18 16 Rate Blood Pressure 123/93 135/73 Laboratory Last Values WBC 3.7 K/mm3 (4.0-10.0) L 10/21/19 09:40 RBC 4.01 M/mm3 (4.00-5.60) 10/21/19 09:40 Hgb 12.0 GM/dL (11.7-16.9) 10/21/19 09:40 Hct 36.6 % (35.4-49) 10/21/19 09:40 MCV 91.1 fl (80-96) 10/21/19 09:40 MCH 30.0 pg (25.7-33.7) 10/21/19 09:40 MCHC 32.9 g/dl (32.0-35.9) 10/21/19 09:40 RDW 15.2 % (11.9-15.9) 10/21/19 09:40 Plt Count 260 K/MM3 (134-434) 10/21/19 09:40 MPV 7.2 fl (7.5-11.1) L 10/21/19 09:40 Sodium 135 mmol/L (136-145) L 10/21/19 09:40 Potassium 4.1 mmol/L (3.5-5.1) 10/21/19 09:40 Chloride 105 mmol/L (98-107) 10/21/19 09:40 Carbon Dioxide 26 mmol/L (21-32) 10/21/19 09:40 Anion Gap 4 MMOL/L (8-16) L 10/21/19 09:40 BUN 14.0 mg/dL (7-18) 10/21/19 09:40 Creatinine 1.0 mg/dL (0.55-1.3) 10/21/19 09:40 Est GFR (CKD-EPI)AfAm 97.77 10/21/19 09:40 Est GFR (CKD-EPI)NonAf 84.35 10/21/19 09:40 Random Glucose 99 mg/dL (74-106) 10/21/19 09:40 Calcium 9.2 mg/dL (8.5-10.1) 10/21/19 09:40 Total Bilirubin 0.3 mg/dL (0.2-1) 10/21/19 09:40 AST 14 U/L (15-37) L 10/21/19 09:40 ALT 27 U/L (13-61) 10/21/19 09:40 Alkaline Phosphatase 50 U/L (45-117) 10/21/19 09:40 Total Protein 11.2 g/dl (6.4-8.2) H 10/21/19 09:40 Albumin 3.7 g/dl (3.4-5.0) 10/21/19 09:40 RPR Titer Nonreactive (NONREACTIVE) 10/21/19 09:40 Labs noted. Assessment: 10/23/19 12:30 AOX3, in no acute respiratory distress. Full ROM, ambulating in the unit. Withdrawal symptoms Plan: continue detox.
[2019-10-23 21:41] VITALS: BP 107/76; PULSE 80; TEMP 97.7
--- NOTE | 2019-10-23 21:52 | DS ---
[facility] Detox Discharge Summary Admission Date: 10/21/19 Discharge Date: 10/23/19 - History Additional Comments: Patient is leaving against medical advice. Risks and consequences of his action reinforced. Patient reports that he has urgent family emergency to take care of. He is medically stable and his vital signs are stable. Patient is not in active withdrawal at this time Pertinent Past History: Hypertension, alcohol dependence, Cannabis dependence and syncope - Physical Exam Results Vital Signs: Vital Signs Temperature 97.7 F 10/23/19 21:40 Pulse Rate 80 10/23/19 21:40 Respiratory Rate 18 10/23/19 21:40 Blood Pressure 107/76 10/23/19 21:40 O2 Sat by Pulse Oximetry (%) Laboratory Last Values WBC 3.7 K/mm3 (4.0-10.0) L 10/21/19 09:40 RBC 4.01 M/mm3 (4.00-5.60) 10/21/19 09:40 Hgb 12.0 GM/dL (11.7-16.9) 10/21/19 09:40 Hct 36.6 % (35.4-49) 10/21/19 09:40 MCV 91.1 fl (80-96) 10/21/19 09:40 MCH 30.0 pg (25.7-33.7) 10/21/19 09:40 MCHC 32.9 g/dl (32.0-35.9) 10/21/19 09:40 RDW 15.2 % (11.9-15.9) 10/21/19 09:40 Plt Count 260 K/MM3 (134-434) 10/21/19 09:40 MPV 7.2 fl (7.5-11.1) L 10/21/19 09:40 Sodium 135 mmol/L (136-145) L 10/21/19 09:40 Potassium 4.1 mmol/L (3.5-5.1) 10/21/19 09:40 Chloride 105 mmol/L (98-107) 10/21/19 09:40 Carbon Dioxide 26 mmol/L (21-32) 10/21/19 09:40 Anion Gap 4 MMOL/L (8-16) L 10/21/19 09:40 BUN 14.0 mg/dL (7-18) 10/21/19 09:40 Creatinine 1.0 mg/dL (0.55-1.3) 10/21/19 09:40 Est GFR (CKD-EPI)AfAm 97.77 10/21/19 09:40 Est GFR (CKD-EPI)NonAf 84.35 10/21/19 09:40 Random Glucose 99 mg/dL (74-106) 10/21/19 09:40 Calcium 9.2 mg/dL (8.5-10.1) 10/21/19 09:40 Total Bilirubin 0.3 mg/dL (0.2-1) 10/21/19 09:40 AST 14 U/L (15-37) L 10/21/19 09:40 ALT 27 U/L (13-61) 10/21/19 09:40 Alkaline Phosphatase 50 U/L (45-117) 10/21/19 09:40 Total Protein 11.2 g/dl (6.4-8.2) H 10/21/19 09:40 Albumin 3.7 g/dl (3.4-5.0) 10/21/19 09:40 RPR Titer Nonreactive (NONREACTIVE) 10/21/19 09:40 Pertinent Admission Physical Exam Findings: Alcohol withdrawal symptoms - Medication Discharge Medications: Ambulatory Orders NK [No Known Home Medication] 03/21/19 - Diagnosis (1) Alcohol dependence with uncomplicated withdrawal Status: Chronic (2) Cannabis dependence Status: Chronic (3) Syncope Status: Chronic Qualifiers: Encounter type: sequela (4) Hypertension Status: Chronic Qualifiers: Hypertension type: unspecified Qualified Code(s): I10 - Essential (primary ) hypertension (5) Marijuana dependence Status: Chronic - AMA Did Patient Leave Against Medical Advice: Yes
[2019-10-23] MEDS: THIAMINE HCL 100 MG TABLET (FP) PO SCH (22:44)
[2019-10-24] MEDS ORDERED: chlordiazePOXIDE HCL 10 MG CAPSULE PO PRN ×2
[2019-10-24] MEDS ORDERED: chlordiazePOXIDE HCL 10 MG CAPSULE PO SCH ×2 (05:00)
[2019-10-24] MEDS ORDERED: chlordiazePOXIDE HCL 10 MG CAPSULE PO ONE (05:00)
[2019-10-25] MEDS ORDERED: chlordiazePOXIDE HCL 10 MG CAPSULE PO ONE (05:00)
[2019-10-25] MEDS ORDERED: chlordiazePOXIDE HCL 10 MG CAPSULE PO SCH (05:00)
[2019-10-26] MEDS ORDERED: chlordiazePOXIDE HCL 10 MG CAPSULE PO ONE (05:00)
== END 2019-10-23 22:03 | disposition left against medical advice (07) | DRG 770 ==
LOC: YASAS 08:16 → Y6N 09:26
PROVIDERS: ADMIT Allergy & Immunology; ATTEND Allergy & Immunology
PROC: HZ2ZZZZ Detoxification Services for Substance Abuse Treatment (ICD-10-PCS; principal; 2019-10-21)
DX: F10.230 Alcohol dependence with withdrawal, uncomplicated (principal); F12.20 Cannabis dependence, uncomplicated; I10 Essential (primary) hypertension; R22.2 Localized swelling, mass and lump, trunk; Z87.891 Personal history of nicotine dependence
CPT/HCPCS: 36415; 80053; 85027; 86593

== ENCOUNTER 2020-01-04 08:24 | Inpatient (IN) | payer OTHER ==
--- NOTE | 2020-01-04 09:03 | BHS.RME ---
Substance Use & Tx History - Substance Use History Alcohol Substance amount: 2 x 6 pack 16 ounce beer Frequency of use: Daily Substance route: Oral Date of Last Use: 01/03/20 Opiates (Other) Substance amount: Percocet 3 or 4 tabs Frequency of use: Less than 3 times per week Substance route: Oral Date of Last Use: 01/03/20 Cannabis Substance amount: 2 blunts Frequency of use: Less than 3 times per week Substance route: Smoking Date of Last Use: 01/03/20 Physical/Psych/Mental Status - Behavior General Behavior: Increased activity (restlessness, agitation) Eye Contact: Decreased - Cooperativeness Cooperativeness: Reluctant - Thinking Thought Processes: Tight Thought content: Future oriented - Physical Health Problems Is patient presently having any pain?: No Does patient presently have any injuries (include location): No Does patient currently have a fever: No Is patient : No CIWA Nausea/Vomitin-No Nausea/No Vomiting Muscle Tremors: 4-Moderate,w/Arms Extend Anxiety: 3 Agitation: 3 Paroxysmal Sweats: No Perspiration Orientation: 0-Oriented Tacttile Disturbances: 0-None Auditory Disturbances: 0-None Visual Disturbances: 2-Mild Sensitivity Headache: 0-None Present CIWA-Ar Total Score: 12
[2020-01-04 09:16] VITALS: BMI 26.6
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
[2020-01-04] MEDS ORDERED: MAG HYDROX/AL HYDROX/SIMETH 30 ML UNIT-DOSE CUP PO PRN (09:47)
[2020-01-04] MEDS ORDERED: METHOCARBAMOL 500 MG TABLET PO PRN (09:47)
[2020-01-04] MEDS ORDERED: MAGNESIUM HYDROX 2400MG/30ML ORAL SUSPENSION 30 ML CUP PO PRN (09:47)
[2020-01-04] MEDS ORDERED: chlordiazePOXIDE HCL 25 MG CAPSULE PO PRN (09:47)
[2020-01-04] MEDS ORDERED: ACETAMINOPHEN 325 MG TABLET (FP) PO PRN ×2 (09:47)
[2020-01-04] MEDS ORDERED: MENTHOL/PHENOL 1 EACH UD MM PRN (09:47)
[2020-01-04] MEDS ORDERED: IBUPROFEN 400 MG TABLET (FP) PO PRN (09:47)
[2020-01-04] MEDS ORDERED: MAGNESIUM CITRATE 300 ML BOTTLE PO PRN (09:47)
[2020-01-04] MEDS ORDERED: BISMUTH SUBSALICYLATE 262 MG/15 ML BTL PO PRN (09:47)
[2020-01-04] MEDS ORDERED: NICOTINE POLACRILEX 2 MG GUM BUC PRN (09:47)
[2020-01-04] MEDS ORDERED: NICOTINE 7 MG/24 HOURS TOPICAL PATCH TD SCH ×2 (10:00)
[2020-01-04] MEDS ORDERED: ONDANSETRON *ODT* 4 MG TABLET SL ONE (10:05)
[2020-01-04] MEDS: chlordiazePOXIDE HCL 25 MG CAPSULE PO SCH ×3 (10:36→22:21)
[2020-01-04] MEDS: PRENATAL VITAMINS W/ FOLIC ACID TABLET (FP) PO SCH (10:36)
[2020-01-04] MEDS: hydrOXYzine PAMOATE 25 MG CAPSULE (FP) PO SCH ×4 (10:38→22:23)
--- NOTE | 2020-01-04 10:43 | PN ---
[facility] Progress Note Note: patient does not smoke cigarette discontinue nicotine patch and gum
[2020-01-04 12:56] LABS: HEMATOCRIT 36.7 % (35.4-49); HEMOGLOBIN 12.1 GM/dL (11.7-16.9); MCH 30.5 pg (25.7-33.7); MCHC 33.1 g/dl (32.0-35.9); MEAN CELL VOLUME 92.1 fl (80-96); MEAN PLT VOLUME 7.6 fl (7.5-11.1); PLATELET COUNT 249 K/MM3 (134-434); RBC 3.98 M/mm3 (4.00-5.60); RDW 15.6 % (11.9-15.9); WHITE BLOOD COUNT 4.8 K/mm3 (4.0-10.0)
[2020-01-04 13:06] LABS: ALBUMIN 3.5 g/dl (3.4-5.0); BILIRUBIN,TOTAL 0.4 mg/dL (0.2-1); BLOOD UREA NITROGEN 13.4 mg/dL (7-18); CREATININE 1.1 mg/dL (0.55-1.3); TOT PROT 11.3 g/dl (6.4-8.2)
[2020-01-04] MEDS: THIAMINE HCL 100 MG TABLET (FP) PO SCH (22:21)
[2020-01-04] MEDS: MELATONIN 5 MG TABLETS PO SCH (22:23)
[2020-01-05] MEDS: chlordiazePOXIDE HCL 25 MG CAPSULE PO SCH ×4 (05:32→22:24)
[2020-01-05] MEDS: hydrOXYzine PAMOATE 25 MG CAPSULE (FP) PO SCH ×5 (05:32→22:25)
--- NOTE | 2020-01-05 09:45 | PN ---
[facility] CIWA - CIWA Score Nausea/Vomitin-No Nausea/No Vomiting Muscle Tremors: 3 Anxiety: 4-Mod. Anxious/Guarded Agitation: 0-Normal Activity Paroxysmal Sweats: 1-Minimal Palms Moist Orientation: 0-Oriented Tacttile Disturbances: 0-None Auditory Disturbances: 0-None Visual Disturbances: 2-Mild Sensitivity Headache: 0-None Present CIWA-Ar Total Score: 10 S Progress Note (SOAP) Subjective: 54 years old male admitted on 01/04/20 for alcohol withdrawal sx management treating with librium detox regiment requests urine toxicology result Mr Acosta believes more substance in urine besides benzo and marijuana health teaching on limitation of urine toxicology testing encourage the patient to attend therapeutic groups and meetings as alcohol recovery Objective: 01/05/20 09:45 Vital Signs Temperature 96.9 F L 01/05/20 07:50 Pulse Rate 79 01/05/20 07:50 Respiratory Rate 16 01/05/20 07:50 Blood Pressure 133/90 01/05/20 07:50 O2 Sat by Pulse Oximetry (%) Laboratory Last Values WBC 4.8 K/mm3 (4.0-10.0) 01/04/20 10:00 RBC 3.98 M/mm3 (4.00-5.60) L 01/04/20 10:00 Hgb 12.1 GM/dL (11.7-16.9) 01/04/20 10:00 Hct 36.7 % (35.4-49) 01/04/20 10:00 MCV 92.1 fl (80-96) 01/04/20 10:00 MCH 30.5 pg (25.7-33.7) 01/04/20 10:00 MCHC 33.1 g/dl (32.0-35.9) 01/04/20 10:00 RDW 15.6 % (11.9-15.9) 01/04/20 10:00 Plt Count 249 K/MM3 (134-434) 01/04/20 10:00 MPV 7.6 fl (7.5-11.1) 01/04/20 10:00 Sodium 137 mmol/L (136-145) 01/04/20 10:00 Potassium 4.0 mmol/L (3.5-5.1) 01/04/20 10:00 Chloride 107 mmol/L (98-107) 01/04/20 10:00 Carbon Dioxide 26 mmol/L (21-32) 01/04/20 10:00 Anion Gap 5 MMOL/L (8-16) L 01/04/20 10:00 BUN 13.4 mg/dL (7-18) 01/04/20 10:00 Creatinine 1.1 mg/dL (0.55-1.3) 01/04/20 10:00 Est GFR (CKD-EPI)AfAm 87.13 01/04/20 10:00 Est GFR (CKD-EPI)NonAf 75.17 01/04/20 10:00 Random Glucose 107 mg/dL (74-106) H 01/04/20 10:00 Calcium 9.0 mg/dL (8.5-10.1) 01/04/20 10:00 Total Bilirubin 0.4 mg/dL (0.2-1) 01/04/20 10:00 AST 19 U/L (15-37) 01/04/20 10:00 ALT 25 U/L (13-61) 01/04/20 10:00 Alkaline Phosphatase 55 U/L (45-117) 01/04/20 10:00 Total Protein 11.3 g/dl (6.4-8.2) H 01/04/20 10:00 Albumin 3.5 g/dl (3.4-5.0) 01/04/20 10:00 lab noted Assessment: 01/05/20 09:45 alcohol withdrawal Plan: librium regiment
[2020-01-05] MEDS: PRENATAL VITAMINS W/ FOLIC ACID TABLET (FP) PO SCH (10:06)
[2020-01-05] MEDS: MELATONIN 5 MG TABLETS PO SCH (22:27)
[2020-01-05] MEDS: THIAMINE HCL 100 MG TABLET (FP) PO SCH (23:19)
[2020-01-06] MEDS: hydrOXYzine PAMOATE 25 MG CAPSULE (FP) PO SCH ×5 (07:02→22:40)
[2020-01-06] MEDS: chlordiazePOXIDE HCL 25 MG CAPSULE PO SCH ×4 (07:02→22:39)
[2020-01-06] MEDS: PRENATAL VITAMINS W/ FOLIC ACID TABLET (FP) PO SCH (10:05)
--- NOTE | 2020-01-06 12:02 | PN ---
[facility] CIWA - CIWA Score Nausea/Vomitin-No Nausea/No Vomiting Muscle Tremors: 2 Anxiety: 0-No Anxiety, at Ease Agitation: 0-Normal Activity Paroxysmal Sweats: 1-Minimal Palms Moist Orientation: 1-Uncertain about Date Tacttile Disturbances: 0-None Auditory Disturbances: 0-None Visual Disturbances: 0-None Headache: 0-None Present CIWA-Ar Total Score: 4 [facility] Progress Note (SOAP) Subjective: Pt states that he need to go to [facility] on 01/07 for a PET scan Objective: 01/06/20 11:59 Laboratory Tests 01/04/20 01/04/20 10:00 10:00 WBC 4.8 RBC 3.98 L Hgb 12.1 Hct 36.7 MCV 92.1 MCH 30.5 MCHC 33.1 RDW 15.6 Plt Count 249 MPV 7.6 Sodium 137 Potassium 4.0 Chloride 107 Carbon Dioxide 26 Anion Gap 5 L BUN 13.4 Creatinine 1.1 Est GFR (CKD-EPI)AfAm 87.13 Est GFR (CKD-EPI)NonAf 75.17 Random Glucose 107 H Calcium 9.0 Total Bilirubin 0.4 AST 19 ALT 25 Alkaline Phosphatase 55 Total Protein 11.3 H Albumin 3.5 Vital Signs - 24 hr 01/05/20 01/05/20 01/06/20 16:33 20:38 00:34 Temperature 97.0 F L 97.1 F L Pulse Rate 92 H 87 Respiratory 20 18 16 Rate Blood Pressure 123/86 125/88 01/06/20 01/06/20 01/06/20 03:29 06:16 08:46 Temperature 96.6 F L 96.7 F L Pulse Rate 88 94 H Respiratory 16 18 18 Rate Blood Pressure 122/89 135/87 PE Gnl: WDWN, in no distress Mentation: nl Gait: steady Assessment: 01/06/20 11:59 1. Alcohol use disorder 2. under evaluation for multiple myeloma, pt states he is pending PET scan and radiation treatment Plan: 1. Librium withdrawal protocol 2. Possible multiple myeloma, under investigation at this time, chest mass, s/p bone marrow biopsy
[2020-01-06] MEDS: THIAMINE HCL 100 MG TABLET (FP) PO SCH (22:41)
[2020-01-06] MEDS: MELATONIN 5 MG TABLETS PO SCH (22:41)
[2020-01-07] MEDS ORDERED: chlordiazePOXIDE HCL 10 MG CAPSULE PO PRN
[2020-01-07] MEDS: hydrOXYzine PAMOATE 25 MG CAPSULE (FP) PO SCH ×4 (07:50→18:58)
[2020-01-07] MEDS: chlordiazePOXIDE HCL 10 MG CAPSULE PO SCH ×3 (07:50→18:58)
[2020-01-07] MEDS: PRENATAL VITAMINS W/ FOLIC ACID TABLET (FP) PO SCH (10:33)
--- NOTE | 2020-01-07 11:58 | PN ---
[facility] CIWA - CIWA Score Nausea/Vomitin-No Nausea/No Vomiting Muscle Tremors: None Anxiety: 2 Agitation: 0-Normal Activity Paroxysmal Sweats: 2 Orientation: 0-Oriented Tacttile Disturbances: 0-None Auditory Disturbances: 0-None Visual Disturbances: 0-None Headache: 0-None Present CIWA-Ar Total Score: 4 S Progress Note (SOAP) Subjective: c/o mild withdrawal symptoms. Objective: 01/07/20 11:58 Vital Signs 01/07/20 01/07/20 06:31 09:00 Temperature 96.5 F L 96.4 F L Pulse Rate 104 H 88 Respiratory 18 18 Rate Blood Pressure 131/88 131/85 Laboratory Last Values WBC 4.8 K/mm3 (4.0-10.0) 01/04/20 10:00 RBC 3.98 M/mm3 (4.00-5.60) L 01/04/20 10:00 Hgb 12.1 GM/dL (11.7-16.9) 01/04/20 10:00 Hct 36.7 % (35.4-49) 01/04/20 10:00 MCV 92.1 fl (80-96) 01/04/20 10:00 MCH 30.5 pg (25.7-33.7) 01/04/20 10:00 MCHC 33.1 g/dl (32.0-35.9) 01/04/20 10:00 RDW 15.6 % (11.9-15.9) 01/04/20 10:00 Plt Count 249 K/MM3 (134-434) 01/04/20 10:00 MPV 7.6 fl (7.5-11.1) 01/04/20 10:00 Sodium 137 mmol/L (136-145) 01/04/20 10:00 Potassium 4.0 mmol/L (3.5-5.1) 01/04/20 10:00 Chloride 107 mmol/L (98-107) 01/04/20 10:00 Carbon Dioxide 26 mmol/L (21-32) 01/04/20 10:00 Anion Gap 5 MMOL/L (8-16) L 01/04/20 10:00 BUN 13.4 mg/dL (7-18) 01/04/20 10:00 Creatinine 1.1 mg/dL (0.55-1.3) 01/04/20 10:00 Est GFR (CKD-EPI)AfAm 87.13 01/04/20 10:00 Est GFR (CKD-EPI)NonAf 75.17 01/04/20 10:00 Random Glucose 107 mg/dL (74-106) H 01/04/20 10:00 Calcium 9.0 mg/dL (8.5-10.1) 01/04/20 10:00 Total Bilirubin 0.4 mg/dL (0.2-1) 01/04/20 10:00 AST 19 U/L (15-37) 01/04/20 10:00 ALT 25 U/L (13-61) 01/04/20 10:00 Alkaline Phosphatase 55 U/L (45-117) 01/04/20 10:00 Total Protein 11.3 g/dl (6.4-8.2) H 01/04/20 10:00 Albumin 3.5 g/dl (3.4-5.0) 01/04/20 10:00 Labs noted. Assessment: 01/07/20 11:58 AOX3, in no acute respiratory distress. Full ROM, ambulating in the unit. Mild Withdrawal symptoms. Plan: continue detox.
[2020-01-07 18:27] VITALS: PULSE 82; TEMP 96.7
[2020-01-07 18:39] VITALS: BP 137/92
[2020-01-08] MEDS ORDERED: chlordiazePOXIDE HCL 10 MG CAPSULE PO SCH (05:00)
[2020-01-09] MEDS ORDERED: chlordiazePOXIDE HCL 10 MG CAPSULE PO ONE (05:00)
== END 2020-01-07 19:55 | disposition left against medical advice (07) | DRG 770 ==
LOC: YASAS 08:24 → Y3N 09:49
PROVIDERS: ADMIT Allergy & Immunology; ATTEND Allergy & Immunology
PROC: HZ2ZZZZ Detoxification Services for Substance Abuse Treatment (ICD-10-PCS; principal; 2020-01-04)
DX: F10.230 Alcohol dependence with withdrawal, uncomplicated (principal); F11.20 Opioid dependence, uncomplicated; I10 Essential (primary) hypertension; J45.909 Unspecified asthma, uncomplicated; R22.2 Localized swelling, mass and lump, trunk; Z87.891 Personal history of nicotine dependence
CPT/HCPCS: 36415; 80053; 85027

== ENCOUNTER 2021-04-26 07:11 | Inpatient (IN) | payer OTHER ==
[2021-04-26 07:37] VITALS: BMI 24.0
[2021-04-26] MEDS ORDERED: MAGNESIUM HYDROX 2400MG/30ML ORAL SUSPENSION 30 ML CUP PO PRN (09:06)
[2021-04-26] MEDS ORDERED: MAGNESIUM CITRATE 300 ML BOTTLE PO PRN (09:06)
[2021-04-26] MEDS ORDERED: BISMUTH SUBSALICYLATE 524 MG/30 ML PO PRN (09:06)
[2021-04-26] MEDS ORDERED: MAG HYDROX/AL HYDROX/SIMETH 30 ML UNIT-DOSE CUP PO PRN (09:06)
[2021-04-26] MEDS ORDERED: ACETAMINOPHEN 325 MG TABLET (FP) PO PRN ×2 (09:06)
[2021-04-26] MEDS ORDERED: IBUPROFEN 400 MG TABLET (FP) PO PRN (09:06)
[2021-04-26] MEDS ORDERED: MENTHOL/PHENOL 1 EACH UD MM PRN (09:06)
[2021-04-26] MEDS ORDERED: ONDANSETRON *ODT* 4 MG TABLET SL PRN (09:06)
[2021-04-26] MEDS: PRENATAL VITAMINS W/ FOLIC ACID TABLET (FP) PO SCH (10:30)
[2021-04-26] MEDS: hydrOXYzine PAMOATE 25 MG CAPSULE (FP) PO SCH ×4 (10:30→23:03)
[2021-04-26] MEDS: diazePAM 5 MG TABLET PO SCH ×3 (10:31→23:04)
[2021-04-26 11:37] LABS: ALBUMIN 3.5 g/dl (3.4-5.0); BLOOD UREA NITROGEN 9.4 mg/dL (7-18); CALCIUM 8.8 mg/dL (8.5-10.1)
[2021-04-26 11:41] LABS: CREATININE 1.1 mg/dL (0.55-1.3)
[2021-04-26 11:43] LABS: BILIRUBIN,TOTAL 0.2 mg/dL (0.2-1); TOT PROT 11.6 g/dl (6.4-8.2)
[2021-04-26 11:45] LABS: HEMATOCRIT 33.4 % (35.4-49); HEMOGLOBIN 11.1 GM/dL (11.7-16.9); MCH 31.1 pg (25.7-33.7); MCHC 33.3 g/dl (32.0-35.9); MEAN CELL VOLUME 93.4 fl (80-96); MEAN PLT VOLUME 6.9 fl (7.5-11.1); PLATELET COUNT 250 10^3/uL (134-434); RBC 3.58 M/mm3 (4.00-5.60); RDW 14.9 % (11.9-15.9); WHITE BLOOD COUNT 3.3 K/mm3 (4.0-10.0)
[2021-04-26] MEDS: THIAMINE HCL 100 MG TABLET (FP) PO SCH (23:03)
[2021-04-26] MEDS: MELATONIN 5 MG TABLETS PO SCH (23:03)
[2021-04-27] MEDS: diazePAM 5 MG TABLET PO PRN ×2 (03:42→07:58)
[2021-04-27] MEDS: hydrOXYzine PAMOATE 25 MG CAPSULE (FP) PO SCH ×6 (06:18→22:04)
[2021-04-27] MEDS: diazePAM 5 MG TABLET PO SCH ×4 (06:18→22:04)
[2021-04-27] MEDS: PRENATAL VITAMINS W/ FOLIC ACID TABLET (FP) PO SCH (10:03)
[2021-04-27] MEDS: METHOCARBAMOL 500 MG TABLET PO PRN ×2 (10:04→22:05)
[2021-04-27] MEDS: THIAMINE HCL 100 MG TABLET (FP) PO SCH (22:04)
[2021-04-27] MEDS: MELATONIN 5 MG TABLETS PO SCH (22:04)
[2021-04-28] MEDS: hydrOXYzine PAMOATE 25 MG CAPSULE (FP) PO SCH ×5 (07:58→22:07)
[2021-04-28] MEDS: diazePAM 5 MG TABLET PO SCH ×3 (08:00→22:06)
[2021-04-28] MEDS: PRENATAL VITAMINS W/ FOLIC ACID TABLET (FP) PO SCH (10:06)
[2021-04-28] MEDS: diazePAM 5 MG TABLET PO PRN (12:24)
[2021-04-28] MEDS: MELATONIN 5 MG TABLETS PO SCH (22:07)
[2021-04-28] MEDS: METHOCARBAMOL 500 MG TABLET PO PRN (22:08)
[2021-04-28] MEDS: THIAMINE HCL 100 MG TABLET (FP) PO SCH (22:08)
[2021-04-29] MEDS: diazePAM 5 MG TABLET PO PRN (07:57)
[2021-04-29] MEDS: diazePAM 5 MG TABLET PO SCH ×2 (07:59→17:44)
[2021-04-29] MEDS: hydrOXYzine PAMOATE 25 MG CAPSULE (FP) PO SCH ×5 (08:00→22:04)
[2021-04-29] MEDS: PRENATAL VITAMINS W/ FOLIC ACID TABLET (FP) PO SCH (10:12)
[2021-04-29] MEDS ORDERED: METOPROLOL TARTRATE 50 MG TABLET (FP) PO ONE (18:02)
[2021-04-29] MEDS: METHOCARBAMOL 500 MG TABLET PO PRN (22:03)
[2021-04-29] MEDS: MELATONIN 5 MG TABLETS PO SCH (22:04)
[2021-04-29] MEDS: THIAMINE HCL 100 MG TABLET (FP) PO SCH (22:04)
[2021-04-30] MEDS: hydrOXYzine PAMOATE 25 MG CAPSULE (FP) PO SCH (05:57)
[2021-04-30] MEDS ORDERED: diazePAM 5 MG TABLET PO ONE (06:00)
[2021-04-30 09:09] VITALS: BP 129/92; PULSE 97; TEMP 97.1
== END 2021-04-30 09:10 | disposition home or self-care (01) | DRG 775 ==
LOC: YASAS 07:11 → Y3N 09:17
PROVIDERS: ADMIT Allergy & Immunology; ATTEND Allergy & Immunology
PROC: HZ2ZZZZ Detoxification Services for Substance Abuse Treatment (ICD-10-PCS; principal; 2021-04-26)
DX: F10.230 Alcohol dependence with withdrawal, uncomplicated (principal); F12.20 Cannabis dependence, uncomplicated; I10 Essential (primary) hypertension; M54.5 Low back pain; R22.2 Localized swelling, mass and lump, trunk; Z87.891 Personal history of nicotine dependence; Z87.81 Personal history of (healed) traumatic fracture
CPT/HCPCS: 36415; 80053; 85027; 86780; C9803; U0003; U0005